=== PATIENT | male | born 1940 | race Caucasian/White ===

== ENCOUNTER → 2016-10-27 | Outpatient (CLI) | payer BC ==
[~2016-10-27] MED LIST: ACAR25TA PO; ANT25 PO; ASPI-435 PO; ATOR-26 PO; CALC600T9 PO; CIPR-255 PO; CLN200 PO; CLR10 PO; DIAZ-165 PO; DOCU100C31 PO; DOXA4TAB2 PO; DULA1INJ INJ; DUTA0.5C PO; FINA5TAB PO; FLUT0.15 NAE; GLC850 PO; GLIM4TAB PO; LISI-461 PO; MECL1TAB42 PO; MELO15TA3 PO; METO-217 PO; MGNO400 PO; MULT-506 PO; RPF/8 PO; SITA1TAB27 PO; SLWMEC PO; SOLI10TA2 PO; TRAZ100T29 PO; VENL75CA PO
[2016-10-27 16:48] LABS: HEMATOCRIT 38.5 % (42-52); MEAN CELL VOLUME 88.9 fL (80-100); MEAN CORPUSCULAR HEMOGLOBIN 29.6 pg (25-34); MEAN CORPUSCULAR HGB CONC 33.2 g/dl (32-36); MEAN PLATELET VOLUME 11.6 fL (7.4-10.4); PLATELET COUNT 206 K/uL (130-400); RED BLOOD COUNT 4.33 M/uL (4.7-6.1); WHITE BLOOD COUNT 5.79 K/uL (4.8-10.8)
[2016-10-27 16:56] LABS: ALT/SGPT 24 U/L (12-78); BLOOD UREA NITROGEN 19 mg/dl (7-18); BUN/CREATININE RATIO 16.2 (10-20); CALCIUM 9.3 mg/dl (8.5-10.1); CARBON DIOXIDE 28 mmol/L (21-32); CHLORIDE 107 mmol/L (98-107); CHOLESTEROL 142 mg/dl (0-200); GLUCOSE 202 mg/dl (70-99); POTASSIUM 4.6 mmol/L (3.5-5.1); SODIUM 143 mmol/L (136-145)
[2016-10-27 17:07] LABS: ALB/GLOB RATIO 0.9 (0.9-2); ALKALINE PHOSPHATASE 109 U/L (45-117); AST/SGOT 15 U/L (15-37); CHOLESTEROL/HDL RATIO 3.6; HDL CHOLESTEROL 40 mg/dl; LDL CHOLESTEROL CALCULATED 80 mg/dl; TRIGLYCERIDES 112 mg/dl (0-150); VERY LOW DENSITY LIPOPROT CALC 22 mg/dl
[2016-10-28 05:56] LABS: ESTIMATED AVERAGE GLUCOSE 206 mg/dl; HA1C FLAG Normal (Normal)
== END | disposition home or self-care (01) ==
LOC: C.LABBFT 12:37
PROVIDERS: ATTEND Internal Medicine
DX: E11.29 Type 2 diabetes mellitus with other diabetic kidney complication (principal)

== ENCOUNTER → 2017-01-26 | Outpatient (CLI) | payer BC ==
--- NOTE | 2017-01-26 14:47 | DIAGNOSTIC IMAGING REPORT ---
CT HEAD WITHOUT CONTRAST (CT) CLINICAL HISTORY: G31.84 Mild cognitive [id number] Gait [id number] COMPARISON STUDY: No previous studies for comparison. TECHNIQUE: Axial CT of the brain is performed from the vertex to the skull base. IV contrast was not administered for this examination. CT DOSE: 614.27 mGy.cm FINDINGS: No intra or extra-axial mass lesions are visualized. There is no CT evidence of acute cortical infarction. There is no evidence of midline shift. There is no acute hemorrhage. No calvarial fractures are visualized. There are patchy white matter hypodensities likely on a small vessel basis. There is a cortical calcification within the left parietal vertex. This is not felt to be of acute clinical significance. There is an old lacunar infarct within the right pelvis. There is no evidence of pathologic ventricular dilatation. There is no evidence of acute sinusitis IMPRESSION: 1. No acute intracranial findings 2. Old right thalamic infarct 3. White matter hypodensities likely on a small vessel basis Electronically signed by: Daniel Cuadra M.D. 01/26/2017 2:46 PM Dictated Date/Time: 01/26/2017 2:45 PM
--- NOTE | 2017-02-01 13:20 | CODING QUERY MEDICAL NECESSITY ---
SUPPORTING DIAGNOSIS NEEDED Dr. Gregory, A supporting diagnosis is required for the test/procedure performed on this patient in order for us to be reimbursed by the patient's insurance. Please provide a supporting diagnosis for the following test/procedure listed below next to the test name along with your signature. *If there is no additional diagnosis for this patient that would support the following test/procedure please document that below next to the test/procedure. Test(s)/Procedure(s) that require a supporting diagnosis: * ([id number]) B12 VITAMIN LEVEL DIAGNOSIS: DATE OF SERVICE: 01/26/17 Provider Signature: Date: Thank you Abisai Scales Health Information Management Once completed, please kindly fax back to [phone] For questions please call [phone]
== END | disposition home or self-care (01) ==
LOC: C.CTS 13:57
PROVIDERS: ATTEND Psychiatry & Neurology Neurology
DX: R48.2 Apraxia (principal); G31.84 Mild cognitive impairment of uncertain or unknown etiology; R26.9 Unspecified abnormalities of gait and mobility

== ENCOUNTER → 2017-02-22 | Outpatient (CLI) | payer BC | END | disposition home or self-care (01) | LOC: C.LABBFT 11:07 | PROVIDERS: ATTEND Internal Medicine Cardiovascular Disease | DX: R41.3 Other amnesia (principal) ==

== ENCOUNTER 2017-04-21 14:47 | Emergency (ER) | payer BC ==
[~2017-04-21] VITALS: Ht 172.7 cm; Wt 106.5 kg
[~2017-04-21 14:47] MED LIST changes: -CLN200 PO; -DOCU100C31 PO; -DULA1INJ INJ; -FINA5TAB PO; -FLUT0.15 NAE; -MECL1TAB42 PO; -SLWMEC PO; -SOLI10TA2 PO
[2017-04-21 14:52] VITALS: TEMP 36.7; Ht 172.7 cm; Wt 106.5 kg
[2017-04-21] MEDS ORDERED: DOCU100C31 PO (15:37)
[2017-04-21] MEDS ORDERED: FLUT0.15 NAE (15:37)
[2017-04-21] MEDS ORDERED: SLWMEC PO (15:37)
[2017-04-21] MEDS ORDERED: DULA1INJ INJ (15:37)
[2017-04-21] MEDS ORDERED: SOLI10TA2 PO (15:37)
[2017-04-21] MEDS ORDERED: FINA5TAB PO (15:37)
[2017-04-21] MEDS ORDERED: MECL1TAB42 PO (15:37)
[2017-04-21] MEDS ORDERED: CLN200 PO (15:37)
[2017-04-21] MEDS ORDERED: BUPIVACAINE 0.5 % 5 MG/1 ML MPF 30ML VIAL INFIL ONE (15:45)
[2017-04-21] MEDS ORDERED: XYLOCAINE 1%/SOD BICARB 20 ML VIAL INFIL ONE (15:45)
--- NOTE | 2017-04-21 16:02 | DIAGNOSTIC IMAGING REPORT ---
LEFT HAND 3 VIEWS CLINICAL HISTORY: Left hand injury. Pain and swelling. FINDINGS: 3 views of the left hand are obtained. No prior studies are available for comparison at the time of dictation. The skeletal structures are osteopenic. No fracture is seen. There is advanced arthritic change identified along the radial carpal row and at the first carpometacarpal joint. Osseous arthritic changes also seen involving the first metacarpophalangeal joint and the interphalangeal joints. No erosive change is seen. There is marked dorsal soft tissue edema. There is atherosclerotic calcification of the regional arteries. IMPRESSION: 1. Marked soft tissue edema with no radiographic evidence of left hand fracture. Consider short-term radiographic follow-up if there is strong clinical concern for occult fracture. 2. Osteopenia and arthritic change as above. 3. There is advanced atherosclerotic calcification of the regional arteries. Electronically signed by: Lei Rich M.D. 04/21/2017 4:01 PM Dictated Date/Time: 04/21/2017 3:58 PM
--- NOTE | 2017-04-21 16:25 | DIAGNOSTIC IMAGING REPORT ---
LEFT WRIST W/NAVICULAR MIN 3 VIEWS CLINICAL HISTORY: left wrist/hand swelling and pain s/p hit by falling emergency nurse trauma. Pain. COMPARISON: None. DISCUSSION: Generalized degenerative change. Generalized soft tissue edema. No acute bony abnormality. Degenerative changes throughout IMPRESSION: Generalized degenerative change. Soft tissue edema. No acute abnormality Electronically signed by: Gordon Gonzalez M.D. 04/21/2017 4:24 PM Dictated Date/Time: 04/21/2017 4:21 PM
--- NOTE | 2017-04-21 17:26 | EMERGENCY ROOM VISIT NOTE ---
ED Visit Note First contact with patient: 15:01 CHIEF COMPLAINT: Hand laceration HISTORY OF PRESENT ILLNESS: This 76-year-old male patient presents to the emergency department approximately 30 minutes after cutting the left hand and fingers. The patient also reports various skin tears on bilateral arms and hands. Patient states he was working on a lawnmower, which was raised on a forklift, when the strap broke which was holding the mower approximately 6 feet in the air. Patient states the mower fell, and on its way down, it hit both of his arms and hands. Patient reports a significant amount of swelling over the left hand and wrist. He reports minimal pain. He rates this pain as throbbing and 3/10. The bleeding has stopped. Denies weakness or numbness of the hand or fingers. The patient denies any other injuries. The patient's Tetanus shot is up to date. REVIEW OF SYSTEMS: A 6 system review of systems was completed with positives and pertinent negatives listed in the HPI. ALLERGIES: None MEDICATIONS: See list PMH: Diabetes, hypertension, hyperlipidemia, vertigo, allergic rhinitis, depression, anxiety SOCIAL HISTORY: Patient lives locally with his family. He denies tobacco, alcohol, drug use. PHYSICAL EXAM: Vital Signs: Reviewed Nurse's notes, vital signs stable. GENERAL : 76-year-old male, in no acute distress, well-developed, well-nourished. SKIN : There is a 6 cm long laceration on the dorsal aspect of the left hand and into the medial aspect of the 4th digit. There is a separate 6 cm long laceration on the dorsal/medial aspect of the left hand and 4th digit. The edges gape apart with traction. There is no foreign material in the wound and it looks clean. There is minimal active bleeding. Tendon noted in laceration into 4th digit, but normal strength and movement of the hand. No deep structures such as tendons, bones, or significant blood vessels are seen in the base of the wound, except as previously noted. Normal strength and movement of the fingers and wrist. Capillary refill less than 2 seconds. Normal sensation to light and sharp touch. EMERGENCY DEPARTMENT COURSE: I examined the patient. xray of left wrist and hand ordered and reviewed by myself and radiologist: Left Hand: FINDINGS: 3 views of the left hand are obtained. No prior studies are available for comparison at the time of dictation. The skeletal structures are osteopenic. No fracture is seen. There is advanced arthritic change identified along the radial carpal row and at the first carpometacarpal joint. Osseous arthritic changes also seen involving the first metacarpophalangeal joint and the interphalangeal joints. No erosive change is seen. There is marked dorsal soft tissue edema. There is atherosclerotic calcification of the regional arteries. IMPRESSION: 1. Marked soft tissue edema with no radiographic evidence of left hand fracture. Consider short-term radiographic follow-up if there is strong clinical concern for occult fracture. 2. Osteopenia and arthritic change as above. 3. There is advanced atherosclerotic calcification of the regional arteries. Left Wrist: DISCUSSION: Generalized degenerative change. Generalized soft tissue edema. No acute bony abnormality. Degenerative changes throughout IMPRESSION: Generalized degenerative change. Soft tissue edema. No acute abnormality Verbal consent was obtained to perform the procedure. Using sterile technique the wound was cleansed with Betadine. The area was sterilely draped. 5 mL of 1 % buffered lidocaine with 0.5% bupivacaine was used to perform a digital block of the left fifth digit, performed by . 10 ml of 1% buffered lidocaine was used to locally anesthetize the laceration on the hand by our PA student. The PA student performed the rest of the procedure. Once the patient was anesthetized, the wound was copiously irrigated under pressure with sterile saline. The wound was explored and was as described above. The laceration on the hand and fourth digit was repaired using 14 simple interrupted 5-0 nylon sutures with the wound edges being well approximated. The laceration on the fifth digit was repaired using 18 simple interrupted 5-0 nylon sutures. The patient tolerated the procedure well. Hemostasis was achieved. The area was cleaned with sterile saline and dressed with bacitracin ointment and bandage. Various other skin tears on bilateral arms and hands were cleaned with sterile saline and dressed with Steri-Strips and gauze. The patient was discharged home in good condition. DIAGNOSIS: Finger and Hand laceration, skin tears DIFFERENTIAL DIAGNOSIS: Distal radius/ulna fracture, metacarpal fracture, carpal bone fracture, tendon rupture, and others. DISCHARGE INSTRUCTIONS & TREATMENT: You have received 32 sutures on your left hand and fingers. These sutures are NOT dissolvable and WILL need to be removed by a health care provider in 10-12 days. You can return to the Emergency Department or contact your Primary Care Provider to have the sutures removed. Proper wound care is essential for adequate wound healing and infection prevention. You can shower and clean the wound with soap and water. Do not scour over the wound, pat dry with a towel. Do not submerse the wound (i.e. bathe or dish wash) until the sutures have been removed. You can use an antibiotic ointment with a dressing over the wound for the next 3-4 days. After this time you may leave the wound dry and open to the air. If crust develops over the wound you can use a Q-tip to apply a 1:1 peroxide:water solution to clean the wound. Look for signs of infection of the wound including: increased pain, swelling, foul discharge, streaking, or increased temperature. If any of these are noticed you should return to the Emergency Department for further assessment and treatment. You should use ice on the hand and wrist for swelling and pain. As with any laceration you may have received nerve damage to the surrounding tissues. This damage may or may not be permanent. You should keep the area covered with sunscreen for the first 6 months to 1 year when at risk for exposure to help minimize scarring. You can also use scar reducing creams or Vitamin E oil to help minimize scarring. Keep the Steri-Strips in place. They will follow off on their own. Try to avoid getting them wet. You may change the outer bandage if you experience a significant amount of bruising, bleeding or drainage. For pain control, you can use the following [id number]-[id number] medicines (if >12 yo): - Regular strength (325mg/tab) Tylenol (acetaminophen) 2 tabs every 4-6 hours as needed. Do not exceed 12 tablets in a 24 hour period. Avoid taking more than 4 grams (4000 mg) of Tylenol per day. This includes any other sources of acetaminophen you may take on a regular basis. - Regular strength (200 mg/tab) Advil (ibuprofen) 1-2 tabs every 4-6 hours as needed. Do not exceed a dose of 3200 mg per day. Return to the emergency department if your symptoms worsen despite treatment course outlined above. Problem List Medical Problems: (1) Prostate enlargement Status: Chronic Current/Historical Medications Scheduled Acarbose (Precose), 50 MG PO TID Aspirin (Aspirin 81), 81 MG PO NOON Atorvastatin (Lipitor), 80 MG PO HS Calcium Carbonate-Vitamin D (Calcium + D), 1 TAB PO BID Docusate Sodium (Docusate Sodium), 2 CAP PO HS Dulaglutide (Trulicity), 0.5 ML INJ WK Finasteride (Proscar), 5 MG PO HS Fluticasone Propionate (Nasal) (Flonase Allergy Relief), 2 SPRAYS MARY KAY DAILY Glimepiride (Amaryl), 4 MG PO BID Lisinopril (Zestril), 10 MG PO DAILY Loratadine (Claritin), 10 MG PO DAILY Magnesium Chloride (Slow-Mag Tab), 2 TAB PO TID Meclizine Hcl (Meclizine Hcl), 1 TAB PO NOON Metformin HCl (Metformin HCl), 850 MG PO TIDM Metoprolol Succinate (Toprol Xl), 50 MG PO QAM Multivitamin (Multivitamin), 1 TAB PO DAILY Sitagliptin (Januvia), 100 MG PO DAILY AT 1200 Solifenacin (Vesicare), 10 MG PO HS Sulindac (Sulindac), 1 TAB PO BID Trazodone Hcl (Trazodone), 200 MG PO HS Venlafaxine Hcl (Effexor Xr), 225 MG PO QAM Scheduled PRN Diazepam (Valium), 5-10 MG PO TID PRN for TREMORS Allergies Coded Allergies: No Known Allergies (Verified , 04/21/17) Vital Signs Date Time Temp Pulse Resp B/P (MAP) Pulse Ox O2 Delivery O2 Flow Rate FiO2 04/21/17 17:24 61 16 105/62 94 04/21/17 14:52 36.7 75 16 132/75 95 Room Air Departure Information Impression Primary Impression: Laceration of multiple sites of upper extremity Additional Impressions: Skin tear of right forearm without complication Skin tear of right hand without complication Skin tear of left forearm without complication Dispostion Home / Self-Care Condition GOOD Referrals Bradley Hill M.D. (PCP) Patient Instructions My [facility] Additional Instructions You have received 32 sutures on your left hand and fingers. These sutures are NOT dissolvable and WILL need to be removed by a health care provider in 10-12 days. You can return to the Emergency Department or contact your Primary Care Provider to have the sutures removed. Proper wound care is essential for adequate wound healing and infection prevention. You can shower and clean the wound with soap and water. Do not scour over the wound, pat dry with a towel. Do not submerse the wound (i.e. bathe or dish wash) until the sutures have been removed. You can use an antibiotic ointment with a dressing over the wound for the next 3-4 days. After this time you may leave the wound dry and open to the air. If crust develops over the wound you can use a Q-tip to apply a 1:1 peroxide:water solution to clean the wound. Look for signs of infection of the wound including: increased pain, swelling, foul discharge, streaking, or increased temperature. If any of these are noticed you should return to the Emergency Department for further assessment and treatment. You should use ice on the hand and wrist for swelling and pain. As with any laceration you may have received nerve damage to the surrounding tissues. This damage may or may not be permanent. You should keep the area covered with sunscreen for the first 6 months to 1 year when at risk for exposure to help minimize scarring. You can also use scar reducing creams or Vitamin E oil to help minimize scarring. Keep the Steri-Strips in place. They will follow off on their own. Try to avoid getting them wet. You may change the outer bandage if you experience a significant amount of bruising, bleeding or drainage. For pain control, you can use the following quac-rzz-quvejqg medicines (if >12 yo): - Regular strength (325mg/tab) Tylenol (acetaminophen) 2 tabs every 4-6 hours as needed. Do not exceed 12 tablets in a 24 hour period. Avoid taking more than 4 grams (4000 mg) of Tylenol per day. This includes any other sources of acetaminophen you may take on a regular basis. - Regular strength (200 mg/tab) Advil (ibuprofen) 1-2 tabs every 4-6 hours as needed. Do not exceed a dose of 3200 mg per day. Return to the emergency department if your symptoms worsen despite treatment course outlined above. Problem Qualifiers Primary Impression: Laceration of multiple sites of upper extremity Encounter type: initial encounter Laterality: unspecified laterality Qualified Codes: S41.119A - Laceration without foreign body of unspecified upper arm, initial encounter Additional Impressions: Skin tear of right forearm without complication Encounter type: initial encounter Qualified Codes: S51.811A - Laceration without foreign body of right forearm, initial encounter Skin tear of right hand without complication Encounter type: initial encounter Qualified Codes: S61.411A - Laceration without foreign body of right hand, initial encounter Skin tear of left forearm without complication Encounter type: initial encounter Qualified Codes: S51.812A - Laceration without foreign body of left forearm, initial encounter
--- NOTE | 2017-04-21 17:55 | EMERGENCY ROOM VISIT NOTE ---
ED Visit Note First contact with patient: 17:33 The patient was seen and examined with Lisa Luz PA-C. I agree with the history, physical and findings. Please see the note for disposition and details.
[2017-04-21 18:17] VITALS: BP 135/69; PULSE 62; O2SAT 94
== END 2017-04-21 18:34 | disposition home or self-care (01) ==
LOC: C.EDB 14:49 → C.EDD 18:34
DX: S41.119A Laceration without foreign body of unspecified upper arm, initial encounter (principal); S51.811A Laceration without foreign body of right forearm, initial encounter; S61.411A Laceration without foreign body of right hand, initial encounter; S51.812A Laceration without foreign body of left forearm, initial encounter; X58.XXXA Exposure to other specified factors, initial encounter; E11.9 Type 2 diabetes mellitus without complications; I10 Essential (primary) hypertension; E78.5 Hyperlipidemia, unspecified; F41.9 Anxiety disorder, unspecified; F33.9 Major depressive disorder, recurrent, unspecified; Z79.82 Long term (current) use of aspirin

== ENCOUNTER → 2017-04-26 | Outpatient (CLI) | payer BC ==
[~2017-04-26] MED LIST changes: -ANT25 PO; -CIPR-255 PO; +CLN200 PO; +DOCU100C31 PO; -DOXA4TAB2 PO; +DULA1INJ INJ; -DUTA0.5C PO; +FINA5TAB PO; +FLUT0.15 NAE; +MECL1TAB42 PO; -MELO15TA3 PO; -MGNO400 PO; -RPF/8 PO; +SLWMEC PO; +SOLI10TA2 PO
[2017-04-26 17:25] LABS: HEMATOCRIT 37.2 % (42-52); MEAN CELL VOLUME 90.7 fL (80-100); MEAN CORPUSCULAR HEMOGLOBIN 29.5 pg (25-34); MEAN CORPUSCULAR HGB CONC 32.5 g/dl (32-36); PLATELET COUNT 224 K/uL (130-400); WHITE BLOOD COUNT 8.68 K/uL (4.8-10.8)
[2017-04-26 17:45] LABS: ALT/SGPT 23 U/L (12-78); AST/SGOT 14 U/L (15-37); BLOOD UREA NITROGEN 26 mg/dl (7-18); BUN/CREATININE RATIO 21.9 (10-20); CALCIUM 9.3 mg/dl (8.5-10.1); CARBON DIOXIDE 24 mmol/L (21-32); CHLORIDE 110 mmol/L (98-107); GLUCOSE 181 mg/dl (70-99); SODIUM 140 mmol/L (136-145)
[2017-04-26 17:55] LABS: ALB/GLOB RATIO 0.9 (0.9-2); ALKALINE PHOSPHATASE 99 U/L (45-117); CHOLESTEROL 130 mg/dl (0-200); CHOLESTEROL/HDL RATIO 3.8; HDL CHOLESTEROL 34 mg/dl; LDL CHOLESTEROL CALCULATED 66 mg/dl; TRIGLYCERIDES 152 mg/dl (0-150); VERY LOW DENSITY LIPOPROT CALC 30 mg/dl
[2017-04-26 18:11] LABS: RATIO 58.3 mcg/mg (0-30.0)
[2017-04-27 06:30] LABS: ESTIMATED AVERAGE GLUCOSE 171 mg/dl; HA1C FLAG Normal (Normal)
== END | disposition home or self-care (01) ==
LOC: C.LABBFT 12:39
PROVIDERS: ATTEND Internal Medicine
DX: E11.65 Type 2 diabetes mellitus with hyperglycemia (principal); E11.29 Type 2 diabetes mellitus with other diabetic kidney complication

== ENCOUNTER → 2017-11-01 | Outpatient (CLI) | payer BC ==
[2017-11-01 18:09] LABS: HEMATOCRIT 39.5 % (42-52); HEMOGLOBIN 13.1 g/dL (14.0-18.0); MEAN CELL VOLUME 90.4 fL (80-100); MEAN CORPUSCULAR HGB CONC 33.2 g/dl (32-36); MEAN PLATELET VOLUME 12.1 fL (7.4-10.4); PLATELET COUNT 211 K/uL (130-400); RED CELL DISTRIBUTION WIDTH CV 13.7 % (11.5-14.5); RED CELL DISTRIBUTION WIDTH SD 45.1 fL (36.4-46.3); WHITE BLOOD COUNT 6.99 K/uL (4.8-10.8)
[2017-11-01 18:38] LABS: ALBUMIN 3.5 gm/dl (3.4-5.0); ALT/SGPT 31 U/L (12-78); AST/SGOT 18 U/L (15-37); BLOOD UREA NITROGEN 19 mg/dl (7-18); CALCIUM 9.4 mg/dl (8.5-10.1); CARBON DIOXIDE 27 mmol/L (21-32); CHOLESTEROL 124 mg/dl (0-200); CREATININE 1.24 mg/dl (0.60-1.40); GLUCOSE 166 mg/dl (70-99); POTASSIUM 4.7 mmol/L (3.5-5.1); SODIUM 141 mmol/L (136-145)
[2017-11-01 18:40] LABS: HEMOGLOBIN A1C 7.3 % (4.5-5.6)
[2017-11-01 18:45] LABS: ALKALINE PHOSPHATASE 97 U/L (45-117); LDL CHOLESTEROL CALCULATED 58 mg/dl; TOTAL PROTEIN 6.7 gm/dl (6.4-8.2)
== END | disposition home or self-care (01) ==
LOC: C.LABBFT 14:33
PROVIDERS: ATTEND Internal Medicine
DX: E11.29 Type 2 diabetes mellitus with other diabetic kidney complication (principal); E78.5 Hyperlipidemia, unspecified; I42.9 Cardiomyopathy, unspecified; I25.10 Atherosclerotic heart disease of native coronary artery without angina pectoris; I10 Essential (primary) hypertension; E83.42 Hypomagnesemia

== ENCOUNTER → 2017-11-11 | Outpatient (CLI) | payer BC ==
--- NOTE | 2017-11-11 16:50 | DIAGNOSTIC IMAGING REPORT ---
LEFT LOWER EXTREMITY VENOUS DOPPLER HISTORY: R60.0 Lower extremity edema COMPARISON STUDY: None. FINDINGS: There is normal compressibility, flow, and augmentation within the left lower extremity deep venous system. Mild heterogeneity within the subcutaneous fat at the left distal medial thigh. No loculated fluid collections. IMPRESSION: No DVT within the left lower extremity. Electronically signed by: Soren Friedman M.D. 11/11/2017 4:49 PM Dictated Date/Time: 11/11/2017 4:49 PM
== END | disposition home or self-care (01) ==
LOC: C.ULTR 15:36
PROVIDERS: ATTEND Internal Medicine
DX: R60.0 Localized edema (principal)

== ENCOUNTER → 2017-12-17 | Outpatient (CLI) | payer BC ==
[~2017-12-17] MED LIST changes: +DTRSR/2 PO; -GLC850 PO; +METF850T10 PO
== END | disposition home or self-care (01) ==
LOC: C.LABBFT 10:46
PROVIDERS: ATTEND Internal Medicine Cardiovascular Disease
DX: E83.42 Hypomagnesemia (principal)

== ENCOUNTER → 2018-02-23 | Outpatient (CLI) | payer BC ==
[~2018-02-23] MED LIST changes: -SOLI10TA2 PO
== END | disposition home or self-care (01) ==
LOC: C.LABBFT 13:28
PROVIDERS: ATTEND Urology
DX: N39.41 Urge incontinence (principal)

== ENCOUNTER → 2018-05-18 | Outpatient (CLI) | payer BC ==
[~2018-05-18] MED LIST changes: -VENL75CA PO; +VENL75CA94 PO
[2018-05-18 14:14] LABS: BLOOD UREA NITROGEN 23 mg/dl (7-18); CALCIUM 9.2 mg/dl (8.5-10.1); CARBON DIOXIDE 25 mmol/L (21-32); CREATININE 1.35 mg/dl (0.60-1.40); GLUCOSE 201 mg/dl (70-99); POTASSIUM 4.5 mmol/L (3.5-5.1); SODIUM 142 mmol/L (136-145)
== END | disposition home or self-care (01) ==
LOC: C.LAB 11:52
PROVIDERS: ATTEND Internal Medicine
DX: Z00.00 Encounter for general adult medical examination without abnormal findings (principal)

== ENCOUNTER 2019-07-03 21:51 | Observation (INO) ==
[2019-07-03] MEDS ORDERED: SODIUM CHLORIDE 0.9% 1000ML 500 ML IV ONE (22:09)
[2019-07-03 22:35] LABS: Basophils # (auto) 0.03 K/uL (0-0.2); Basophils % (auto) 0.3 %; Eosinophils # (auto) 0.68 K/uL (0-0.5); Eosinophils % (auto) 7.8 %; Hematocrit (blood only) 39.3 % (42-52); Hemoglobin 13.4 g/dL (14.0-18.0); Immature Granulocytes # (auto) 0.04 K/uL (0.00-0.02); Immature Granulocytes % (auto) 0.5 %; Lymphocytes # (auto) 2.13 K/uL (1.2-3.4); Lymphocytes % (auto) 24.5 %; Mean Corpuscular Hgb Conc 34.1 g/dL (32-36); Mean Corpuscular Volume 91.4 fL (80-100); Mean Platelet Volume 11.4 fL (7.4-10.4); Monocytes # (auto) 0.56 K/uL (0.11-0.59); Monocytes % (auto) 6.5 %; Neutrophils # (auto) 5.24 K/uL (1.4-6.5); Neutrophils % (auto) 60.4 %; Platelet Count 185 K/uL (130-400); RDW Coefficient of Variation 13.9 % (11.5-14.5); RDW Standard Deviation 46.2 fL (36.4-46.3); White Blood Count 8.68 K/uL (4.8-10.8)
[2019-07-03 22:50] LABS: Albumin Level 3.7 gm/dl (3.4-5.0); BUN Creatinine Ratio 18.6 (10-20); Calcium 9.4 mg/dl (8.5-10.1); Creatinine Clr Calc Pharmacy 43.9 ml/min; Est GFR (African American) 52.7; Est GFR (Non-African American) 45.5; Potassium 4.7 mmol/L (3.5-5.1)
[2019-07-03 22:53] LABS: Albumin Globulin Ratio 1.1 (0.9-2); Bilirubin,Total 0.4 mg/dl (0.2-1); Globulin 3.2 gm/dl (2.5-4.0); Total Protein 6.9 gm/dl (6.4-8.2)
--- NOTE | 2019-07-03 23:00 | CT Scan Report ---
CT abd pelvis wo con CLINICAL HISTORY: 78 years-old Male presenting with known hernia, new onset pain, concern for incarce ration. TECHNIQUE: Multidetector CT of the abdomen and pelvis was performed without the use of intravenous co ntrast. IV contrast: None. One or more dose lowering techniques were used consistent with the princip les of ALARA (as low as reasonably achievable), including automatic exposure control, mA or kV adjust ment to individual patient size, and/or use of iterative reconstruction. COMPARISON: 01/16/2019. CT DOSE (mGy.cm): The estimated cumulative dose is 2304.35 mGy.cm. FINDINGS: Core Setter topogram: Median sternotomy wires and lumbar spinal fusion hardware. Lung bases: Top normal heart size. Coronary artery and aortic valve calcification. No pericardial or pleural effusion. No focal infiltrate or nodule at the lung bases. Liver: Congenital hypoplasia of the medial segments of the left hepatic lobe. Density consistent with mild hepatic steatosis. Punctate calcification suggest a history of granulomatous disease. Biliary: No gross biliary ductal dilatation allowing for noncontrast technique. Normal gallbladder. Pancreas: Moderate parenchymal atrophy. Spleen: Punctate calcification suggest a history of granulomatous disease. Adrenal glands: Normal noncontrast appearance. Kidneys and ureters: Prominent renal vascular calcification. Nonspecific moderate bilateral perinephr ic fat stranding. Mild cortical atrophy may be present bilaterally. Few underlying cysts may be prese nt in the left kidney, one of which is hyperdense suggesting hemorrhagic or proteinaceous debris. No hydronephrosis. Ureters nondistended. Bladder: Circumferential bladder wall thickening. Pelvic organs: Prostate enlargement likely secondary to benign prostatic hyperplasia. Bowel: Mild stool burden throughout normal caliber colon. Mild distention of small bowel without conv incing evidence of high-grade partial or complete bowel obstruction. A loop of unobstructed small bow el is contained within the periumbilical hernia. There is trace pericholecystic fluid and infiltrativ e change in the immediately upstream or downstream loops of small bowel. The appendix is not visualiz ed. Scattered hyperdense material within the small bowel may certainly relate to medication administr ation. Trace hiatal hernia. Peritoneal cavity: No free fluid or intraperitoneal gas. Lymph nodes: No gross lymphadenopathy allowing for noncontrast technique. Vasculature: Atherosclerosis of the normal caliber abdominal aorta. Abdominal wall: Prominent umbilical hernia containing an unobstructed loop of small bowel. Associated trace fluid. The mesenteric fat within the hernia sac is not infiltrated. Bilateral fat-containing i nguinal hernias. Gynecomastia. Musculoskeletal: Degenerative changes of the spine. Lumbar fusion hardware. IMPRESSION: 1. Umbilical hernia containing an unobstructed loop of small bowel and trace fluid. No infiltrative changes within the hernia sac to raise concern for strangulation. Correlate clinically for reducibili ty. There may be a low-grade partial bowel obstruction. No convincing evidence of a high-grade partia l or complete bowel obstruction. 2. Prostatomegaly with chronic bladder outlet obstruction. 3. Additional findings as above. Electronically signed by: Jethro Villanueva M.D. 07/03/2019 10:58 PM
--- NOTE | 2019-07-04 00:18 | Emergency Department Note ---
Entered by Chey Orozco acting as a scribe for Woody Blake MD History of Present Illness General Chief complaint: Abdominal Pain Stated complaint: HERNIA ON ABD, TURNED HARD, PAIN IN STOMACH Time Seen by Provider: 07/03/19 22:00 Source: patient History of Present Illness Onset (ago): hour(s) 10 Location: abdomen Severity: similar to prior episodes Pain Consistency: + other (Sudden) Maximum Pain Intensity: 8 Quality: + other (Abdominal pain) Relieved By: not by rest Associated symptoms: no nausea/vomiting and no other (Abnormal urinary symptoms) Treatments prior to arrival: other (rest) The patient is a 78 year old male presenting to the Emergency Department complaining of sudden abdominal pain starting 10 hours ago. The patient reports that his abdomen feels hard and is painful. He states that he had a bowel movement earlier today. He notes that he has had an abdominal hernia for over 30 years and has felt these symptoms before. 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 The patient denies nausea, vomiting and abnormal urinary symptoms. Home Medications Home Medications Medication Instructions Recorded Confirmed Type atorvastatin [Lipitor] 80 mg PO HS 10/10/18 07/03/19 History diazepam [Valium] 5 mg PO BID PRN 10/10/18 07/03/19 History docusate sodium 200 mg PO HS 10/10/18 07/03/19 History fluticasone propionate [Flonase 2 spray INTRANASAL QAM 10/10/18 07/03/19 History Allergy Relief] lisinopril [Zestril] 10 mg PO QAM 10/10/18 07/03/19 History metoprolol succinate [Toprol XL] 50 mg PO QAM 10/10/18 07/03/19 History multivitamin 1 cap PO QDL 10/10/18 07/03/19 History sulindac 200 mg PO BID 10/10/18 07/03/19 History tolterodine [Detrol] 2 mg PO BID 10/10/18 07/03/19 History trazodone 200 mg PO HS 10/10/18 07/03/19 History hydrocodone-acetaminophen [Vicodin] 1 tab PO Q6H PRN #20 tab 03/14/19 07/03/19 Rx meclizine 25 mg tablet 25 mg PO QAM #90 tab 04/03/19 07/03/19 Rx glimepiride 4 mg tablet 4 mg PO BID #180 tab 05/02/19 07/03/19 Rx magnesium 64 mg (magnesium 128 mg PO TID #540 tab 05/08/19 07/03/19 Rx chloride) tablet,delayed release venlafaxine ER 75 mg 225 mg PO QAM #270 cap 05/08/19 07/03/19 Rx capsule,extended release 24 hr acarbose 50 mg tablet 50 mg PO TID #270 tab 05/16/19 07/03/19 Rx calcium carbonate 600 mg (1,500 1 tab PO BID tab 05/25/19 07/03/19 History mg)-vitamin D3 200 unit tablet dulaglutide 0.75 mg/0.5 mL 1.5 mg SUBCUT WK ml 05/25/19 07/03/19 History subcutaneous pen injector finasteride 5 mg tablet 5 mg PO HS #90 tab 06/21/19 07/03/19 Rx loratadine 10 mg tablet 10 mg PO DAILY #90 tab 06/29/19 07/03/19 Rx sitagliptin 100 mg tablet 100 mg PO DAILY #90 tab 06/29/19 07/03/19 Rx aspirin 81 mg PO DAILY 07/03/19 07/03/19 History Allergies Allergy/AdvReac Type Severity Reaction Status Date / Time No Known Allergies Allergy Verified 07/03/19 23:17 Past Med/Surg History Medical History Anxiety BPH (benign prostatic hyperplasia) CAD (coronary artery disease) CABG X3 (2013) CKD (chronic kidney disease) BASELINE CREATININE 1.5-1.7 RANGE PER CHART REVIEW Chronic back pain Depression Diabetes mellitus, type 2 NIDDM Hearing deficit Hyperlipidemia Hypertension Ischemic cardiomyopathy Kidney stones Myocardial Infarction ? 2014 Osteoarthritis Right inguinal hernia Tremor of both hands Surgical History History of appendectomy History of cardiac cath 2014 History of colonoscopy History of coronary artery bypass graft CABG X3 (2013) History of laminectomy LUMBAR BACK SURGERY X 2 History of lithotripsy History of open reduction and internal fixation (ORIF) procedure RIGHT LLE/ANKLE 2/2 FALL History of tooth extraction ALL TEETH EXTRACTED History of umbilical hernia repair Hx of transurethral resection of prostate Family History Sister Pancreatic cancer Other No family history of adverse response to anesthesia Social History Preferred Language: Portuguese Communication Ability: Effective 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 and A total of 10 systems reviewed and were otherwise negative Physical Exam Vital Signs Vital Signs - 24 hr 07/03/19 21:53 07/03/19 22:20 07/03/19 22:43 Temperature 36.5 C Temperature Source Oral Sepsis Recent Fever Within 48 Hours No Sepsis Action Taken by Nursing No Action Required Pulse Rate 68 Pulse Rate [Apical] 61 Pulse Rhythm Regular Pulse Rhythm [Apical] Pulse Strength Normal Pulse Strength [Apical] Respiratory Rate 18 16 Respiratory Effort / Characteristics Non-Labored Spontaneous Respiratory Depth Normal Normal Respiratory Pattern Regular Blood Pressure 157/73 H Blood Pressure [Left Arm] 159/67 H Blood Pressure Mean 101 Blood Pressure Mean [Left Arm] 97 Blood Pressure Position Sitting Pulse Oximetry 95 99 Oxygen Delivery Method Room Air Room Air Room Air 07/04/19 00:22 Temperature Temperature Source Sepsis Recent Fever Within 48 Hours Sepsis Action Taken by Nursing Pulse Rate Pulse Rate [Apical] 62 Pulse Rhythm Pulse Rhythm [Apical] Regular Pulse Strength Pulse Strength [Apical] Normal Respiratory Rate 18 Respiratory Effort / Characteristics Non-Labored Spontaneous Respiratory Depth Normal Respiratory Pattern Regular Blood Pressure Blood Pressure [Left Arm] 152/69 H Blood Pressure Mean Blood Pressure Mean [Left Arm] 96 Blood Pressure Position Pulse Oximetry 97 Oxygen Delivery Method Room Air General: Non-ill appearing older male in no acute distress. HEENT: Normal cephalic atraumatic. Pupils are equal round and reactive to light. Extraocular movements are intact. Oropharynx is pink with moist mucous membranes. No swelling of the mouth lips or tongue. Neck: Supple with a midline trachea. No meningeal signs or stiffness, no JVD or bruits. No Stridor. Chest: Clear to auscultation bilaterally. No wheezes or rhonchi. No increased work of breathing. Heart: regular rate and rhythm. Abdomen: Nondistended without rebound guarding or rigidity. Hernia at umbilicus that is firm and mildly tender. No redness or warmth. Hernia is not reducible. Extremities: No cyanosis clubbing or edema. No calf tenderness or asymmetry Spine/Back. Non tender to palpation. No CVA tenderness Skin: Good turgor without rashes. Neurologic exam: Cranial nerves two through 12 are intact. Motor and sensation are intact and symmetrical throughout. Course 2201: The patient was evaluated in room A10, and a complete history and physical examination were performed. 2328: I reevaluated the patient at this time. I pushed on hernia which seems like it gets smaller but doesnt go back in. 2330: I discussed the patients case with Dr. Oneal General surgeon who recommends that the patient be admitted to medicine. 2335: I discussed the patients case with Dr. Tania BECKER hospitalist. He will evaluate the patient for further management. Consultations Consultation #1: I discussed the patients case with Dr. Oneal General surgeon who recommends that the patient be admitted to medicine. Time: 23:30 Consultation #2: I discussed the patients case with Dr. Tania BECKER hospitalist. He will evaluate the patient for further management. Time: 23:35 Administered Medications Discontinued Medications Sodium Chloride (Nss 1000ml) 500 mls @ 999 mls/hr IV .Q31M ONE Stop: 07/03/19 22:39 Last Infusion: 07/03/19 22:54 Dose: 0 mls/hr Documented by: [id number] Admin: 07/03/19 22:18 Dose: 999 mls/hr Documented by: [id number] Medical Decision Making Differential Diagnosis Differentials include hernia, bowel obstruction, bowel infection and electrolyte or metabolic abnormality amongst others. Medical Records Attestation: I reviewed the patient's medical records. Home Medications Current Medication List: was personally reviewed by me Laboratory Data Attestation: I reviewed the patient's lab results. Result diagrams: 07/03/19 22:19 07/03/19 22: Lab Results 07/03/19 07/03/19 07/03/19 Range/Units 22:19 22:19 23:54 WBC 8.68 (4.8-10.8) K/uL RBC 4.30 L (4.7-6.1) M/uL Hgb 13.4 L (14.0-18.0) g/dL Hct 39.3 L (42-52) % MCV 91.4 (80-100) fL MCH 31.2 (25-34) pg MCHC 34.1 (32-36) g/dL RDW Std Deviation 46.2 (36.4-46.3) fL RDW Coeff of [place] 13.9 (11.5-14.5) % Plt Count 185 (130-400) K/uL MPV 11.4 H (7.4-10.4) fL Immature Gran % (Auto) 0.5 % Neut % (Auto) 60.4 % Lymph % (Auto) 24.5 % [place] % (Auto) 6.5 % Eos % (Auto) 7.8 % Baso % (Auto) 0.3 % Immature Gran # (Auto) 0.04 H (0.00-0.02) K/uL Neut # (Auto) 5.24 (1.4-6.5) K/uL Lymph # (Auto) 2.13 (1.2-3.4) K/uL [place] # (Auto) 0.56 (0.11-0.59) K/uL Eos # (Auto) 0.68 H (0-0.5) K/uL Baso # (Auto) 0.03 (0-0.2) K/uL Sodium 143 (136-145) mmol/L Potassium 4.7 (3.5-5.1) mmol/L Chloride 110 H (98-107) mmol/L Carbon Dioxide 29 (21-32) mmol/L Anion Gap 4.0 (3-11) BUN 27 H (7-18) mg/dl Creatinine 1.45 H (0.6-1.4) mg/dl Est Cr Clr Drug Dosing 43.9 ml/min Est GFR ( Amer) 52.7 Est GFR (Non-Af Amer) 45.5 BUN/Creatinine Ratio 18.6 (10-20) Glucose 99 (70-99) mg/dl Calcium 9.4 (8.5-10.1) mg/dl Total Bilirubin 0.4 (0.2-1) mg/dl AST 17 (15-37) U/L ALT 26 (12-78) U/L Alkaline Phosphatase 96 (45-117) U/L Total Protein 6.9 (6.4-8.2) gm/dl Albumin 3.7 (3.4-5.0) gm/dl Globulin 3.2 (2.5-4.0) gm/dl Albumin/Globulin Ratio 1.1 (0.9-2) Lipase 197 (73-393) U/L Urine Color Yellow Urine Appearance Clear (Clear) Urine pH 5.0 (4.5-7.5) Ur Specific [place] 1.019 (1.000-1.030) Urine Protein Trace H (Negative) Urine Glucose (UA) Negative (Negative) Urine Ketones Negative (Negative) Urine Blood 1+ H (Negative) Urine Nitrite Negative (Negative) Urine Bilirubin Negative (Negative) Urine Urobilinogen Negative (Negative) Ur Leukocyte Esterase 1+ H (Negative) Urine WBC (Auto) 10-30 H (0-5) /hpf Urine RBC (Auto) 5-10 H (0-4) /hpf U Hyaline Cast (Auto) 1-5 (0-5) /lpf U Epithel Cells (Auto) 5-10 H (0-5) /lpf Urine Bacteria (Auto) Negative (Negative) Imaging Data Radiologist's Impression: Radiology results as stated below per my review and the radiologist's interpretation: CT abd pelvis wo con CLINICAL HISTORY: 78 years-old Male presenting with known hernia, new onset pain, concern for incarceration. TECHNIQUE: Multidetector CT of the abdomen and pelvis was performed without the use of intravenous contrast. IV contrast: None. One or more dose lowering techniques were used consistent with the principles of ALARA (as low as reasonably achievable), including automatic exposure control, mA or kV adjustment to individual patient size, and/or use of iterative reconstruction. COMPARISON: 01/16/2019. CT DOSE (mGy.cm): The estimated cumulative dose is 2304.35 mGy.cm. 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 Lung bases: Top normal heart size. Coronary artery and aortic valve calcification. No pericardial or pleural effusion. No focal infiltrate or nodule at the lung bases. Liver: Congenital hypoplasia of the medial segments of the left hepatic lobe. Density consistent with mild hepatic steatosis. Punctate calcification suggest a history of granulomatous disease. Biliary: No gross biliary ductal dilatation allowing for noncontrast technique. Normal gallbladder. Pancreas: Moderate parenchymal atrophy. Spleen: Punctate calcification suggest a history of granulomatous disease. Adrenal glands: Normal noncontrast appearance. Kidneys and ureters: Prominent renal vascular calcification. Nonspecific moderate bilateral perinephric fat stranding. Mild cortical atrophy may be present bilaterally. Few underlying cysts may be present in the left kidney, one of which is hyperdense suggesting hemorrhagic or proteinaceous debris. No hydronephrosis. Ureters nondistended. Bladder: Circumferential bladder wall thickening. Pelvic organs: Prostate enlargement likely secondary to benign prostatic hyp erplasia. Bowel: Mild stool burden throughout normal caliber colon. Mild distention of small bowel without convincing evidence of high-grade partial or complete bowel obstruction. A loop of unobstructed small bowel is contained within the periumbilical hernia. There is trace pericholecystic fluid and infiltrative change in the immediately upstream or downstream loops of small bowel. The appendix is not visualized. Scattered hyperdense material within the small bowel may certainly relate to medication administration. Trace hiatal hernia. Peritoneal cavity: No free fluid or intraperitoneal gas. Lymph nodes: No gross lymphadenopathy allowing for noncontrast technique. Vasculature: Atherosclerosis of the normal caliber abdominal aorta. Abdominal wall: Prominent umbilical hernia containing an unobstructed loop of small bowel. Associated trace fluid. The mesenteric fat within the hernia sac is not infiltrated. Bilateral fat-containing inguinal hernias. Gynecomastia. Musculoskeletal: Degenerative changes of the spine. Lumbar fusion hardware. IMPRESSION: 1. Umbilical hernia containing an unobstructed loop of small bowel and trace fluid. No infiltrative changes within the hernia sac to raise concern for strangulation. Correlate clinically for reducibility. There may be a low-grade partial bowel obstruction. No convincing evidence of a high-grade partial or complete bowel obstruction. 2. Prostatomegaly with chronic bladder outlet obstruction. 3. Additional findings as above. Electronically signed by: Jethro Villanueva M.D. 07/03/2019 10:58 PM Blood Pressure Blood Pressure Findings: Elevated blood pressure Blood Pressure Disposition: further management by hospitalist [facility] Narrative This patient comes in as described above. He has a known ventral hernia that he felt was more distended and firm today. he is also having some abdominal pain. No fever or chills. No trauma. No vomiting. He looks well on exam. The hernia is large and only mildly tender. When I press on it, it does get smaller but does not completely reduce. He tells me it never completely reduces. IV access established blood work was obtained and I did a CAT scan. He was given a fluid bolus he was kept n.p.o. The CAT scan does not show any bowel obstruction. There is a loop of bowel within the hernia. I discussed with Dr. Oneal, he does agree that the patient should be observed and kept n.p.o. after midnight for possible surgery in the morning. I discussed the case with Dr. Lanza and he will admit the patient for these measures. Impression & Plan Abdominal pain, Umbilical hernia, Diabetes Discharge Plan Visit Data *Final* Discharge Date/Time: 07/04/19 01:16 Chief Complaint: Abdominal Pain Stated Complaint: HERNIA ON ABD, TURNED HARD, PAIN IN STOMACH ED Provider: Woody Blake Discharge Problem: Abdominal pain, Umbilical hernia, Diabetes Patient Disposition: Admitted As Inpatient Discharge Instructions Interventions: ED Discharge Assessment Last Done: 07/04/19 01:16 The scribe's documentation has been prepared under my direction and personally reviewed by me in its entirety. I confirm that the note above accurately reflects all work, treatment, procedures, and medical decision making performed by me.
[2019-07-04 00:43] LABS: Appearance Urine Clear (Clear); Bacteria Urine Automated Negative (Negative); Bilirubin Urine Negative (Negative); Blood Urine 1+ (Negative); Color Urine Yellow; Glucose Urine UA Negative (Negative); Ketones Urine Negative (Negative); Leukocyte Esterase Urine 1+ (Negative); Nitrite Urine Negative (Negative); Protein Urine Trace (Negative); Specific Gravity Urine 1.019 (1.000-1.030); Urobilinogen Urine Negative (Negative)
--- NOTE | 2019-07-04 01:06 | History & Physical Report ---
Date of Service July 04, 2019 Assessment & Plan (1) Umbilical hernia: NPO IVF Surgery consult in the am. Present on Admission?: Yes (2) Abdominal pain: Pain control Nausea control Present on Admission?: Yes (3) CAD (coronary artery disease): Tele monitoring. Present on Admission?: Yes (4) Uncontrolled diabetes mellitus with microalbuminuria: Patient is NPO. Will check sugars and cover with sliding scale until able to take orals and home meds again. Present on Admission?: Yes (5) Prostate enlargement: Present on Admission?: Yes History of Present Illness 78 year old male presented to the ED complaining of sudden onset of periumbilical abdominal pain. He reported that his abdomen felt hard and was painful to touch around his chronic umbilical hernia site. H He had a bowel movement on 07/03.. He has had an umbilical hernia for over 30 years and has felt these symptoms before, but had resolved in short time. This time with resting he had no improvement. The patient denies nausea, vomiting, diarrhea, F/C, cough, SOB, CP or dysuria. Primary Care Provider: Bradley Hill MD Allergies Allergy/AdvReac Type Severity Reaction Status Date / Time No Known Allergies Allergy Verified 07/03/19 23:17 Home Medications Home Medications Medication Instructions Recorded Confirmed Type atorvastatin [Lipitor] 80 mg PO HS 10/10/18 07/03/19 History diazepam [Valium] 5 mg PO BID PRN 10/10/18 07/03/19 History docusate sodium 200 mg PO HS 10/10/18 07/03/19 History fluticasone propionate [Flonase 2 spray INTRANASAL QAM 10/10/18 07/03/19 History Allergy Relief] lisinopril [Zestril] 10 mg PO QAM 10/10/18 07/03/19 History metoprolol succinate [Toprol XL] 50 mg PO QAM 10/10/18 07/03/19 History multivitamin 1 cap PO QDL 10/10/18 07/03/19 History sulindac 200 mg PO BID 10/10/18 07/03/19 History tolterodine [Detrol] 2 mg PO BID 10/10/18 07/03/19 History trazodone 200 mg PO HS 10/10/18 07/03/19 History hydrocodone-acetaminophen [Vicodin] 1 tab PO Q6H PRN #20 tab 03/14/19 07/03/19 Rx meclizine 25 mg tablet 25 mg PO QAM #90 tab 04/03/19 07/03/19 Rx glimepiride 4 mg tablet 4 mg PO BID #180 tab 05/02/19 07/03/19 Rx magnesium 64 mg (magnesium 128 mg PO TID #540 tab 05/08/19 07/03/19 Rx chloride) tablet,delayed release venlafaxine ER 75 mg 225 mg PO QAM #270 cap 05/08/19 07/03/19 Rx capsule,extended release 24 hr acarbose 50 mg tablet 50 mg PO TID #270 tab 05/16/19 07/03/19 Rx calcium carbonate 600 mg (1,500 1 tab PO BID tab 05/25/19 07/03/19 History mg)-vitamin D3 200 unit tablet dulaglutide 0.75 mg/0.5 mL 1.5 mg SUBCUT WK ml 05/25/19 07/03/19 History subcutaneous pen injector finasteride 5 mg tablet 5 mg PO HS #90 tab 06/21/19 07/03/19 Rx loratadine 10 mg tablet 10 mg PO DAILY #90 tab 06/29/19 07/03/19 Rx sitagliptin 100 mg tablet 100 mg PO DAILY #90 tab 06/29/19 07/03/19 Rx aspirin 81 mg PO DAILY 07/03/19 07/03/19 History Past Med/Surg History Medical History Anxiety BPH (benign prostatic hyperplasia) CAD (coronary artery disease) CABG X3 (2013) CKD (chronic kidney disease) BASELINE CREATININE 1.5-1.7 RANGE PER CHART REVIEW Chronic back pain Depression Diabetes mellitus, type 2 NIDDM Hearing deficit Hyperlipidemia Hypertension Ischemic cardiomyopathy Kidney stones Myocardial Infarction ? 2013 Osteoarthritis Right inguinal hernia Tremor of both hands Surgical History History of appendectomy History of cardiac cath 2014 History of colonoscopy History of coronary artery bypass graft CABG X3 (2013) History of laminectomy LUMBAR BACK SURGERY X 2 History of lithotripsy History of open reduction and internal fixation (ORIF) procedure RIGHT LLE/ANKLE 2/2 FALL History of tooth extraction ALL TEETH EXTRACTED History of umbilical hernia repair Hx of transurethral resection of prostate Family History Sister Pancreatic cancer Other No family history of adverse response to anesthesia Social History Preferred Language: Malawian Communication Ability: Effective 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 Beliefs That Will Affect Care: None Current Living Situation: Spouse Feels Safe at Home: Yes Smoking Status: Never smoker Second Hand Exposure: No ; Hx Alcohol Use: Yes Alcohol type: beer Hx Substance Use: No Review of Systems Constitutional: no fever, no chills and no weight loss Eyes: no eye pain and no photophobia Ear, Nose, Mouth, Throat: no tinnitus, no dizziness and no epistaxis Respiratory: no cough, no dyspnea on exertion, no hemoptysis and no wheezing Cardiovascular: no chest pain, no chest pain with activity, no palpitations and no edema Gastrointestinal: as per Subjective / HPI Musculoskeletal: no radicular pain, no joint pain and no stiffness Integumentary: no rash, no urticaria and no yellowing of the skin Neurologic: + tremor(s) (Has chronic tremor); no localized weakness, no genera lized weakness and no headache(s) Psychiatric: no depression and no anxiety Endocrine: no polyuria and no heat intolerance Hematologic / Lymphatic: no easy bruising Allergy / Immunological: no seasonal rhinorrhea Physical Exam Constitutional: cooperative; no acute distress Eyes: PERRL, conjunctivae normal, anicteric sclerae EOM intact bilaterally ENMT: external ear and nose normal, oropharynx normal Neck: trachea midline, no thyromegaly Respiratory: normal respiratory effort, lungs clear to auscultation Auscultation: no crackles, no rhonchi and no wheezes Cardiovascular: RRR, no murmur, no edema Gastrointestinal (Abdomen): Inspection/Auscultation: normal bowel sounds Percussion/Palpation: + abdomen tender (over umbilical hernia), abdomen soft and + hernia (Umbilical, unable to reduce due to pain.) Musculoskeletal: no cyanosis or clubbing, extremities motor strength 5/5 Skin: no rashes, warm and dry Neurologic: PERRL, EOMI, accommodation nl, no face palsy, no dysarthria CN's II-XI intact bilaterally Psychiatric: A+Ox3, euthymic affect Lymphatic: no cervical or axillary lymphadenopathy Results & Data Vital Signs (Past 12 Hours) Vital Signs Temp Pulse Pulse Resp BP BP Pulse Ox 07/04/19 00:22 62 18 152/69 H 97 07/03/19 22:43 61 16 159/67 H 99 07/03/19 21:53 36.5 C 68 18 157/73 H 95 Diagnostic Findings I personally reviewed the CT abdomen/pelvis results. Code Status & VTE Plan VTE Prophylaxis Plan VTE Prophylaxis will be ordered: Yes PG Care Time/CCT Total # of Minutes Spent Total Time Spent: 45 Total Time Spent with Patient: Total time spent is greater than 50% in coordination of care (as documented) at patient's floor/unit and/or counseling patient: (1) Umbilical hernia Obstruction and gangrene presence: without obstruction or gangrene Qualified Code(s): K42.9 - Umbilical hernia without obstruction or gangrene (2) Abdominal pain Abdominal location: unspecified location Qualified Code(s): R10.9 - Unspecified abdominal pain
[2019-07-04] MEDS ORDERED: DEXTROSE 50% 50 ML SYRINGE IV PRN (01:23)
[2019-07-04] MEDS ORDERED: CARBOHYDRATES FOR HYPOGLYCEMIA PO PRN (01:23)
[2019-07-04] MEDS ORDERED: MoRPHine SULFATE 2 MG/ML CARP IV PRN (01:23)
[2019-07-04] MEDS ORDERED: MoRPHine SULFATE 4 MG/ML 1 ML CARP\\VIAL IV PRN ×2 (01:23→14:44)
[2019-07-04] MEDS ORDERED: KETOROLAC TROMETHAMINE 15 MG/ML VIAL IV PRN (01:23)
[2019-07-04] MEDS ORDERED: GLUCAGON FOR INJ 1 MG VIAL SQ PRN (01:23)
[2019-07-04] MEDS ORDERED: LACTATED RINGER'S 1,000 ML IV SCH (01:23)
[2019-07-04] MEDS ORDERED: GLUCOSE 10 TABS/TUBE PO PRN (01:23)
[2019-07-04] MEDS ORDERED: ONDANSETRON INJ 2 MG/ML 2 ML VIAL IV PRN (01:23)
[2019-07-04] MEDS ORDERED: GLUCOSE 40% GEL 15 GM TUBE PO PRN (01:23)
[2019-07-04 02:46] LABS: Hematocrit (blood only) 37.7 % (42-52); Hemoglobin 12.7 g/dL (14.0-18.0); Mean Corpuscular Hgb Conc 33.7 g/dL (32-36); Mean Platelet Volume 11.3 fL (7.4-10.4); Platelet Count 181 K/uL (130-400); RDW Coefficient of Variation 13.8 % (11.5-14.5); RDW Standard Deviation 45.3 fL (36.4-46.3); Red Blood Count 4.19 M/uL (4.7-6.1); White Blood Count 10.06 K/uL (4.8-10.8)
[2019-07-04 03:05] LABS: BUN Creatinine Ratio 20.2 (10-20); Calcium 8.6 mg/dl (8.5-10.1); Creatinine Clr Calc Pharmacy 49.1 ml/min; Est GFR (African American) 60.7; Est GFR (Non-African American) 52.4; Magnesium 1.4 mg/dl (1.8-2.4); Potassium 4.5 mmol/L (3.5-5.1)
[2019-07-04] MEDS: D5W AND 1/2NSS 1,000 ML IV SCH ×2 (05:43→19:42)
[2019-07-04] MEDS ORDERED: INSULIN ASPART 100 UNITS/ML 3 ML PEN SC SCH (06:00)
--- NOTE | 2019-07-04 10:00 | Surgery Consultation ---
Date of Consultation July 04, 2019 Assessment & Plan (1) Umbilical hernia: Chronically incarcerated umbilical hernia but now enlarging. Would recommend hernia repair, he agreed to proceed today. Supervising Physician Co-Signing Physician Notes Patient seen and examined, labs and imaging reviewed, agree with above. 78-year-old male with known history of umbilical hernia that yesterday became larger and caused more abdominal pain. He was seen in the emergency department had a CT scan which showed a small piece of bowel within the hernia but no obvious obstruction. I discussed the case with the emergency department and, he had no evidence of strangulation or obstruction, but they were concerned about sending him home. He was admitted to the medicine service. His pain is improved overnight, the hernia is still present but back to its normal size. It appears to be chronically incarcerated. On exam he has an incarcerated umbilical hernia with no signs of strangulation or obstruction. No peritonitis. Plan for umbilical hernia repair The risk of the procedure were discussed to include but not limited to bleeding, infection, recurrence, damage to surrounding structures, need for future or more extensive surgery, and the risk of anesthesia Diagnosis, details of the surgery and recovery, and plan of care discussed the patient and his , all questions were answered, the patient expressed u nderstanding and agrees with plan of care as stated History of Present Illness Attending Physician: Darwin Flynn History of Present Illness 78 y/o male with long standing umbilical hernia became larger and hard last evening. Not painful today, and has returned closer to previous size. No N/V. CT showed small bowel in the hernia, possible low grade obstruction. Allergies Allergy/AdvReac Type Severity Reaction Status Date / Time No Known Allergies Allergy Verified 07/03/19 23:17 Home Medications Home Medications Medication Instructions Recorded Confirmed Type atorvastatin [Lipitor] 80 mg PO HS 10/10/18 07/03/19 History diazepam [Valium] 5 mg PO BID PRN 10/10/18 07/03/19 History docusate sodium 200 mg PO HS 10/10/18 07/03/19 History fluticasone propionate [Flonase 2 spray INTRANASAL QAM 10/10/18 07/03/19 History Allergy Relief] lisinopril [Zestril] 10 mg PO QAM 10/10/18 07/03/19 History metoprolol succinate [Toprol XL] 50 mg PO QAM 10/10/18 07/03/19 History multivitamin 1 cap PO QDL 10/10/18 07/03/19 History sulindac 200 mg PO BID 10/10/18 07/03/19 History tolterodine [Detrol] 2 mg PO BID 10/10/18 07/03/19 History trazodone 200 mg PO HS 10/10/18 07/03/19 History hydrocodone-acetaminophen [Vicodin] 1 tab PO Q6H PRN #20 tab 03/14/19 07/03/19 Rx meclizine 25 mg tablet 25 mg PO QAM #90 tab 04/03/19 07/03/19 Rx glimepiride 4 mg tablet 4 mg PO BID #180 tab 05/02/19 07/03/19 Rx magnesium 64 mg (magnesium 128 mg PO TID #540 tab 05/08/19 07/03/19 Rx chloride) tablet,delayed release venlafaxine ER 75 mg 225 mg PO QAM #270 cap 05/08/19 07/03/19 Rx capsule,extended release 24 hr acarbose 50 mg tablet 50 mg PO TID #270 tab 05/16/19 07/03/19 Rx calcium carbonate 600 mg (1,500 1 tab PO BID tab 05/25/19 07/03/19 History mg)-vitamin D3 200 unit tablet dulaglutide 0.75 mg/0.5 mL 1.5 mg SUBCUT WK ml 05/25/19 07/03/19 History subcutaneous pen injector finasteride 5 mg tablet 5 mg PO HS #90 tab 06/21/19 07/03/19 Rx loratadine 10 mg tablet 10 mg PO DAILY #90 tab 06/29/19 07/03/19 Rx sitagliptin 100 mg tablet 100 mg PO DAILY #90 tab 06/29/19 07/03/19 Rx aspirin 81 mg PO DAILY 07/03/19 07/03/19 History Patient History Medical History Anxiety BPH (benign prostatic hyperplasia) CAD (coronary artery disease) CABG X3 (2013) CKD (chronic kidney disease) BASELINE CREATININE 1.5-1.7 RANGE PER CHART REVIEW Chronic back pain Depression Diabetes mellitus, type 2 NIDDM Hearing deficit Hyperlipidemia Hypertension Ischemic cardiomyopathy Kidney stones Myocardial Infarction ? 2013 Osteoarthritis Right inguinal hernia Tremor of both hands Surgical History History of appendectomy History of cardiac cath 2014 History of colonoscopy History of coronary artery bypass graft CABG X3 (2014) History of laminectomy LUMBAR BACK SURGERY X 2 History of lithotripsy History of open reduction and internal fixation (ORIF) procedure RIGHT LLE/ANKLE 2/2 FALL History of tooth extraction ALL TEETH EXTRACTED History of umbilical hernia repair Hx of transurethral resection of prostate Family History Sister Pancreatic cancer Other No family history of adverse response to anesthesia Social History Preferred Language: Bulgarian Communication Ability: Effective Poiser Required: No Beliefs That Will Affect Care: None Current Living Situation: Spouse Other Information That Helps Us Care for You: No Feels Safe at Home: Yes Safety Concerns: Feels Safe At This Time Smoking Status: Never smoker Second Hand Exposure: No ; Hx Alcohol Use: Yes Alcohol type: beer Hx Substance Use: No Review of Systems Constitutional: no fever, no chills and no weight loss Cardiovascular: no chest pain and no dyspnea Gastrointestinal: + abdominal pain; no bloating, no nausea and no vomiting Physical Exam Constitutional: WD/WN, vitals as above Respiratory: normal respiratory effort, lungs clear to auscultation Cardiovascular: RRR, no murmur, no edema Gastrointestinal (Abdomen): Percussion/Palpation: abdomen soft and + hernia (golf ball sized umbilical hernia, nonreducible, nontender); abdomen nontender Results & Data Vital Signs (Past 12 Hours) Vital Signs Temp Pulse Resp BP Pulse Ox 07/04/19 07:27 36.8 C 58 L 18 135/71 96 07/04/19 01:28 36.7 C 67 18 157/77 H 96 07/04/19 01:08 63 20 142/67 H 97 07/04/19 00:22 62 18 152/69 H 97 07/03/19 22:43 61 16 159/67 H 99 PG Care Time/CCT Total # of Minutes Spent Total Time Spent with Patient: Total time spent is greater than 50% in coordination of care (as documented) at patient's floor/unit and/or counseling patient: (1) Umbilical hernia Obstruction and gangrene presence: without obstruction or gangrene Qualified Code(s): K42.9 - Umbilical hernia without obstruction or gangrene
[2019-07-04] MEDS: MAGNESIUM SULFATE / D5W 1 GM/100 ML BAG IV SCH ×2 (10:41→11:42)
--- NOTE | 2019-07-04 11:16 | Anesthesiology Consultation ---
Date of Service July 04, 2019 Assessment & Plan (1) Encounter for pre-operative examination: Chart Review Chart Review: Acceptable Risk for Surgery and Patient NOT seen in Pre Admission Testing Consults Requested none ASA ASA3 Proposed Anesthesia Anesthesia Type: General History Surgery Operation Date: 07/04/19 09:30 Proposed Procedures p Open Umbilical Hernia Repair - Edwardo Oneal DO, FACS Height/Weight Height: 5 ft 5 in Weight: 94.8 kg Allergies Allergy/AdvReac Type Severity Reaction Status Date / Time No Known Allergies Allergy Verified 07/03/19 23:17 Medications Home Medications Medication Instructions Recorded Confirmed Last Taken atorvastatin [Lipitor] 80 mg PO HS 10/10/18 07/03/19 03/13/19 21:00 diazepam [Valium] 5 mg PO BID PRN 10/10/18 07/03/19 Unknown docusate sodium 200 mg PO HS 10/10/18 07/03/19 03/13/19 21:00 fluticasone propionate [Flonase 2 spray INTRANASAL QAM 10/10/18 07/03/19 03/13/19 10:00 Allergy Relief] lisinopril [Zestril] 10 mg PO QAM 10/10/18 07/03/19 03/13/19 09:00 metoprolol succinate [Toprol XL] 50 mg PO QAM 10/10/18 07/03/19 03/13/19 09:00 multivitamin 1 cap PO QDL 10/10/18 07/03/19 03/13/19 09:00 sulindac 200 mg PO BID 10/10/18 07/03/19 03/13/19 21:00 tolterodine [Detrol] 2 mg PO BID 10/10/18 07/03/19 03/13/19 21:00 trazodone 200 mg PO HS 10/10/18 07/03/19 03/13/19 21:00 hydrocodone-acetaminophen [Vicodin] 1 tab PO Q6H PRN #20 tab 03/14/19 07/03/19 Unknown meclizine 25 mg tablet 25 mg PO QAM #90 tab 04/03/19 07/03/19 Unknown glimepiride 4 mg tablet 4 mg PO BID #180 tab 05/02/19 07/03/19 Unknown magnesium 64 mg (magnesium 128 mg PO TID #540 tab 05/08/19 07/03/19 Unknown chloride) tablet,delayed release venlafaxine ER 75 mg 225 mg PO QAM #270 cap 05/08/19 07/03/19 Unknown capsule,extended release 24 hr acarbose 50 mg tablet 50 mg PO TID #270 tab 05/16/19 07/03/19 Unknown calcium carbonate 600 mg (1,500 1 tab PO BID tab 05/25/19 07/03/19 Unknown mg)-vitamin D3 200 unit tablet dulaglutide 0.75 mg/0.5 mL 1.5 mg SUBCUT WK ml 05/25/19 07/03/19 Unknown subcutaneous pen injector finasteride 5 mg tablet 5 mg PO HS #90 tab 06/21/19 07/03/19 Unknown loratadine 10 mg tablet 10 mg PO DAILY #90 tab 06/29/19 07/03/19 Unknown sitagliptin 100 mg tablet 100 mg PO DAILY #90 tab 06/29/19 07/03/19 Unknown aspirin 81 mg PO DAILY 07/03/19 07/03/19 Unknown Active Medications Generic Name Dose Route Start Last Admin Trade Name Freq PRN Reason Stop Dose Admin Dextrose/Sodium Chloride 1,000 mls @ 80 mls/hr 07/04/19 05:45 07/04/19 10:41 D5w And 1/2nss IV 08/03/19 05:44 0 mls/hr .[id number] HALLE Infusion Magnesium Sulfate/Dextrose 1 gm in 100 mls @ 100 mls/hr 07/04/19 09:30 07/04/19 10:41 Magnesium Sulfate / D5w IV 07/04/19 11:29 100 mls/hr Q1H HALLE Administration Insulin Aspart 0 units 07/04/19 06:00 07/04/19 05:20 Novolog Flexpen SC 08/03/19 05:59 Not Given Q6 HALLE Morphine Sulfate 2 mg 07/04/19 01:23 07/04/19 01:33 Morphine Sulfate IV 07/18/19 01:22 2 mg Q3H PRN Administration Moderate Pain (4,5,6) NPO Date Last Intake of Fluids: 07/03/19 Time Last Intake of Fluids: 23:59 Date Last Intake of Solids: 07/03/19 Time Last Intake of Solids: 23:59 Past Medical History Medical History Anxiety BPH (benign prostatic hyperplasia) CAD (coronary artery disease) CABG X3 (2013) CKD (chronic kidney disease) BASELINE CREATININE 1.5-1.7 RANGE PER CHART REVIEW Chronic back pain Depression Diabetes mellitus, type 2 NIDDM Hearing deficit Hyperlipidemia Hypertension Ischemic cardiomyopathy Kidney stones Myocardial Infarction ? 2013 Osteoarthritis Right inguinal hernia Tremor of both hands Past Family History Family History Sister Pancreatic cancer Other No family history of adverse response to anesthesia Past Surgical History Surgical History History of appendectomy History of cardiac cath 2014 History of colonoscopy History of coronary artery bypass graft CABG X3 (2013) History of laminectomy LUMBAR BACK SURGERY X 2 History of lithotripsy History of open reduction and internal fixation (ORIF) procedure RIGHT LLE/ANKLE 2/ FALL History of tooth extraction ALL TEETH EXTRACTED History of umbilical hernia repair Hx of transurethral resection of prostate Social History Smoking Status: Never smoker Hx Alcohol Use: Yes Alcohol type: beer alcohol intake frequency: a few times a month Hx Substance Use: No substance use type: does not use Physical Exam Vital Signs Last Vital Signs Temp 36.8 C 07/04/19 07:27 Pulse 58 L 07/04/19 07:27 Resp 18 07/04/19 07:27 BP 135/71 07/04/19 07:27 Pulse Ox 96 07/04/19 07:27 Testing Laboratory Results 07/04/19 02:32 07/04/19 02:32 Urine Color Yellow 07/03/19 23:54 Urine Appearance Clear (Clear) 07/03/19 23:54 Urine pH 5.0 (4.5-7.5) 07/03/19 23:54 Ur Specific [place] 1.019 (1.000-1.030) 07/03/19 23:54 Urine Protein Trace (Negative) H 07/03/19 23:54 Urine Glucose (UA) Negative (Negative) 07/03/19 23:54 Urine Ketones Negative (Negative) 07/03/19 23:54 Urine Nitrite Negative (Negative) 07/03/19 23:54 Ur Leukocyte Esterase 1+ (Negative) H 07/03/19 23:54 Urine WBC (Auto) 10-30 /hpf (0-5) H 07/03/19 23:54 Urine RBC (Auto) 5-10 /hpf (0-4) H 07/03/19 23:54 U Hyaline Cast (Auto) 1-5 /lpf (0-5) 07/03/19 23:54 U Epithel Cells (Auto) 5-10 /lpf (0-5) H 07/03/19 23:54 Urine Bacteria (Auto) Negative (Negative) 07/03/19 23:54 07/04/19 07/04/19 06:53 05:10 POC Glucose 98 74
[2019-07-04] MEDS ORDERED: BUPIVACAINE 0.5 % 5 MG/1 ML MPF 30ML VIAL ONE (11:56)
[2019-07-04] MEDS ORDERED: fentaNYL citrate 100 MCG/2 ML VIAL ONE (12:02)
[2019-07-04] MEDS ORDERED: ROCURONIUM BROMIDE 10 MG/ML 5 ML VIAL ONE (12:02)
[2019-07-04] MEDS ORDERED: ONDANSETRON INJ 2 MG/ML 2 ML VIAL ONE (12:02)
[2019-07-04] MEDS ORDERED: DEXAMETHASONE SOD INJ 4 MG/ML VIAL ONE (12:02)
[2019-07-04] MEDS ORDERED: LIDOCAINE HCL 2% 2 ML VIAL/AMP(20MG/ML) INFIL ONE (12:02)
[2019-07-04] MEDS ORDERED: PROPOFOL IV EMULSION 10 MG/ML 20 ML VIAL IV ONE (12:02)
[2019-07-04] MEDS ORDERED: ATROPINE SULFATE 0.1 MG/ML 10ML SYR IV PRN (12:09)
[2019-07-04] MEDS ORDERED: ePHEDrine sulfate 50 MG/ML AMP IV PRN (12:09)
[2019-07-04] MEDS ORDERED: HYDROmorphone INJ 1 MG/ML SYRINGE IV PRN (12:09)
[2019-07-04] MEDS ORDERED: CEFAZOLIN 2,000 MG/15 ML IV PUSH IV ONE (12:49)
[2019-07-04] MEDS ORDERED: CEFAZOLIN 2000MG 2,000 MG/15 ML SYR IV ONE (12:50)
[2019-07-04] MEDS ORDERED: GLYCOPYRROLATE 0.2 MG/ML VIAL ONE (13:18)
[2019-07-04] MEDS ORDERED: NEOSTIGMINE METHYLSULFATE 1 MG/ML 10ML VIAL ONE (13:18)
--- NOTE | 2019-07-04 13:46 | Operative Report ---
Post Operative Report Pre & Post Diagnosis Operation Date: 07/04/19 09:30 Pre-Op Diagnosis: incarcerated umbilical hernia Post-Op Diagnosis: incarcerated umbilical hernia Procedure Operation Date: 07/04/19 09:30 Actual Procedures p Open Umbilical Hernia Repair - Edwardo Oneal DO, RADHA Surgeon Edwardo Oneal DO, RADHA [employer] Tax[employer] Operator Abisai Bass Estimated Blood Loss 4 Findings Consistent with Post-Op Diagnosis Chronically incarcerated umbilical hernia reduced. 1.5 cm defect closed primarily with interrupted 0 Nurolon sutures. Specimens None Anesthesia Type General Complications none Disposition Accompanied Patient To Recovery: No Disposition: Recovery Room Indications 78-year-old male admitted overnight with chronically incarcerated umbilical hernia with increased pain and a small bowel loop with no evidence of strangulation or obstruction. Plan for umbilical hernia repair. The risks of the procedure were discussed, all questions were answered, and the patient agreed to proceed with surgery as planned. Description of Procedure The patient was properly identified, consented, and taken to the operating room where he was placed in the supine position. General endotracheal anesthesia was induced. SCDs and a safety belt were placed. Preoperative antibiotics were administered. The patient's abdomen was prepped and draped in the standard sterile fashion. Surgical timeout was performed and all parties were in agreement that this was the correct patient and procedure to be performed and we continued as planned. A curvilinear infraumbilical incision was made and deepened down to the fascia with blunt dissection. The hernia was chronically incarcerated and were able to free up the hernia sac from the surrounding tissue. The umbilical stalk was circumferentially dissected with a Cassandra, and divided below the level of the skin. The hernia was reduced and a portion of the hernia sac was resected. This was not sent to pathology. A 1.5 cm fascial defect was encountered. The hernia was reduced. The fascia anteriorly and posteriorly was cleared of investing tissue for several centimeters. Hemostasis was achieved within the wound. The hernia defect was closed primarily with interrupted 0 Nurolon sutures. The wound was irrigated and hemostasis confirmed. The umbilicus was tacked down to the fascia with 3-0 Vicryl sutures. Local anesthetic in the form of 0.5% Marcaine was injected in the fascia and along the skin incision. The skin was closed with interrupted 3-0 Vicryl deep dermal sutures, followed by 4-0 Monocryl running subcuticular suture. Dermabond was placed over the wound. The patient was extubated in the operating room and taken to the PACU where he recovered without apparent incident. All sponge, instrument and needle counts were correct at the conclusion of the procedure. The patient tolerated the procedure well. The physician's food and beverage assistant manager was present and scrubbed for the entire to the case. He was critical in positioning the patient, prepping and draping, retraction and exposure, closure the incisions, and placement of the dressings. I attest to the content of the Intraoperative Record and any orders documented therein. Any exceptions are noted below.
[2019-07-04] MEDS ORDERED: OXYCODONE/ACETAMINOPHEN 5mg/325mg TAB PO PRN ×2 (14:44)
--- NOTE | 2019-07-04 15:50 | Anesthesiology Progress Note ---
Date of Service July 04, 2019 Anesthesia Post Procedure Vital Signs Vital Signs: Temp Pulse Pulse Pulse Resp BP BP 07/04/19 15:46 36.4 C L 62 18 160/74 H 07/04/19 15:12 36.8 C 59 L 16 160/73 H 07/04/19 14:45 37.0 C 62 14 150/63 H 07/04/19 14:35 37.0 C 07/04/19 14:31 60 14 07/04/19 14:30 60 13 140/82 07/04/19 14:26 60 15 07/04/19 14:25 61 13 143/72 H 07/04/19 14:21 60 16 07/04/19 14:20 62 12 153/66 H 07/04/19 14:16 59 L 14 07/04/19 14:15 58 L 11 L 138/86 07/04/19 14:10 59 L 9 L 148/64 H 07/04/19 14:06 59 L 14 153/68 H 07/04/19 14:05 61 20 07/04/19 14:02 67 15 157/72 H 07/04/19 14:00 71 13 07/04/19 13:59 74 15 07/04/19 13:58 36.3 C L 79 74 13 172/77 H 177/77 H 07/04/19 11:30 36.9 C 68 20 149/81 H 07/04/19 07:27 36.8 C 58 L 18 135/71 07/04/19 01:28 36.7 C 67 18 157/77 H 07/04/19 01:08 63 20 142/67 H 07/04/19 00:22 62 18 152/69 H 07/03/19 22:43 61 16 159/67 H 07/03/19 21:53 36.5 C 68 18 157/73 H Pulse Ox 07/04/19 15:46 91 07/04/19 15:12 93 07/04/19 14:45 93 07/04/19 14:35 93 07/04/19 14:31 93 07/04/19 14:30 92 07/04/19 14:26 92 07/04/19 14:25 94 07/04/19 14:21 95 07/04/19 14:20 94 07/04/19 14:16 100 07/04/19 14:15 100 07/04/19 14:10 100 07/04/19 14:06 100 07/04/19 14:05 98 07/04/19 14:02 92 07/04/19 14:00 96 07/04/19 13:59 99 07/04/19 13:58 94 07/04/19 11:30 97 07/04/19 07:27 96 07/04/19 01:28 96 07/04/19 01:08 97 07/04/19 00:22 97 07/03/19 22:43 99 07/03/19 21:53 95 Pain Intensity Abdomen: Pain Intensity: 0 Transfer of Care Handoff Completed per policy Notes Mental Status: alert / awake / arousable Patient Amnestic to Procedure: Yes Nausea / Vomiting: adequately controlled Pain: adequately controlled Airway Patency, RR, SpO2: stable & adequate BP & HR: stable & adequate Hydration State: stable & adequate Anesthetic Complications: no major complications apparent and Pt Satisfied with anesthetic care
[2019-07-04] MEDS ORDERED: Nursing to Pharmacy Communication ONE (16:04)
[2019-07-04] MEDS: INSULIN ASPART 100 UNITS/ML 3 ML PEN SC SCH ×2 (18:11→21:08)
[2019-07-04] MEDS ORDERED: LANTUS PER UNIT CHARGE SC SCH (21:45)
--- NOTE | 2019-07-04 22:22 | Hospitalist Progress Note ---
Date of Service July 04, 2019 Assessment & Plan (1) Umbilical hernia: w/ incarceration s/p repair today by Dr Oneal doing well post-op watch overnight d/c home tomorrow if doing well from surgical standpoint (2) Diabetes: typically on oral agents at home anticipate sugars to be high in light of surgery; also received IV steroids perioperatively adjust novolog consider lantus (3) CAD (coronary artery disease): stable no ischemic symptoms restart asa when ok w/ surgery cont BB cont statin (4) Hypercholesteremia: statin Subjective saw patient post-op from his umbilical hernia with incarceration repair he felt very good pain in abdomen that he had at presentation was resolved no nausea/emesis/cp/dyspnea Review of Systems Constitutional: no fever Respiratory: no cough and no dyspnea Cardiovascular: no chest pain Physical Exam Constitutional: well developed, well nourished and + obese; no acute distress and no altered mental status ENMT: external ear and nose normal, oropharynx normal Respiratory: normal respiratory effort, lungs clear to auscultation Cardiovascular: Rate/Rhythm: regular rate and regular rhythm Heart Sounds: normal S1 and normal S2; no murmur Vessels: posterior tibial pulses present and dorsalis pedis pulses present; no JVD Extremities: no edema Gastrointestinal (Abdomen): Inspection/Auscultation: normal bowel sounds Percussion/Palpation: abdomen soft; abdomen nontender and no hepatosplenomegaly Skin: umbilical incision clean Psychiatric: A+Ox3, euthymic affect Results & Data Vital Signs (Past 12 Hours) Vital Signs Temp Pulse Pulse Pulse Resp BP BP 07/04/19 18:10 36.5 C 62 16 146/68 H 07/04/19 16:40 36.6 C 61 18 135/63 07/04/19 15:46 36.4 C L 62 18 160/74 H 07/04/19 15:12 36.8 C 59 L 16 160/73 H 07/04/19 14:45 37.0 C 62 14 150/63 H 07/04/19 14:35 37.0 C 07/04/19 14:31 60 14 07/04/19 14:30 60 13 140/82 07/04/19 14:26 60 15 07/04/19 14:25 61 13 143/72 H 07/04/19 14:21 60 16 07/04/19 14:20 62 12 153/66 H 07/04/19 14:16 59 L 14 07/04/19 14:15 58 L 11 L 138/86 07/04/19 14:10 59 L 9 L 148/64 H 07/04/19 14:06 59 L 14 153/68 H 07/04/19 14:05 61 20 07/04/19 14:02 67 15 157/72 H 07/04/19 14:00 71 13 07/04/19 13:59 74 15 07/04/19 13:58 36.3 C L 79 74 13 172/77 H 177/77 H 07/04/19 11:30 36.9 C 68 20 149/81 H Pulse Ox 07/04/19 18:10 92 07/04/19 16:40 92 07/04/19 15:46 91 07/04/19 15:12 93 07/04/19 14:45 93 07/04/19 14:35 93 07/04/19 14:31 93 07/04/19 14:30 92 07/04/19 14:26 92 07/04/19 14:25 94 07/04/19 14:21 95 07/04/19 14:20 94 07/04/19 14:16 100 07/04/19 14:15 100 07/04/19 14:10 100 07/04/19 14:06 100 07/04/19 14:05 98 07/04/19 14:02 92 07/04/19 14:00 96 07/04/19 13:59 99 07/04/19 13:58 94 07/04/19 11:30 97 Laboratory Results Laboratory Results - last 24 hr 07/03/19 07/03/19 07/03/19 22:19 22:19 23:54 WBC 8.68 RBC 4.30 L Hgb 13.4 L Hct 39.3 L MCV 91.4 MCH 31.2 MCHC 34.1 RDW Std Deviation 46.2 RDW Coeff of [place] 13.9 Plt Count 185 MPV 11.4 H Immature Gran % (Auto) 0.5 Neut % (Auto) 60.4 Lymph % (Auto) 24.5 [place] % (Auto) 6.5 Eos % (Auto) 7.8 Baso % (Auto) 0.3 Immature Gran # (Auto) 0.04 H Neut # (Auto) 5.24 Lymph # (Auto) 2.13 [place] # (Auto) 0.56 Eos # (Auto) 0.68 H Baso # (Auto) 0.03 Sodium 143 Potassium 4.7 Chloride 110 H Carbon Dioxide 29 Anion Gap 4.0 BUN 27 H Creatinine 1.45 H Est Cr Clr Drug Dosing 43.9 Est GFR ( Amer) 52.7 Est GFR (Non-Af Amer) 45.5 BUN/Creatinine Ratio 18.6 Glucose 99 POC Glucose Calcium 9.4 Magnesium Total Bilirubin 0.4 AST 17 ALT 26 Alkaline Phosphatase 96 Total Protein 6.9 Albumin 3.7 Globulin 3.2 Albumin/Globulin Ratio 1.1 Lipase 197 Urine Color Yellow Urine Appearance Clear Urine pH 5.0 Ur Specific [place] 1.019 Urine Protein Trace H Urine Glucose (UA) Negative Urine Ketones Negative Urine Blood 1+ H Urine Nitrite Negative Urine Bilirubin Negative Urine Urobilinogen Negative Ur Leukocyte Esterase 1+ H Urine WBC (Auto) 10-30 H Urine RBC (Auto) 5-10 H U Hyaline Cast (Auto) 1-5 U Epithel Cells (Auto) 5-10 H Urine Bacteria (Auto) Negative 07/04/19 07/04/19 07/04/19 02:32 02:32 05:10 WBC 10.06 RBC 4.19 L Hgb 12.7 L Hct 37.7 L MCV 90.0 MCH 30.3 MCHC 33.7 RDW Std Deviation 45.3 RDW Coeff of [place] 13.8 Plt Count 181 MPV 11.3 H Immature Gran % (Auto) Neut % (Auto) Lymph % (Auto) [place] % (Auto) Eos % (Auto) Baso % (Auto) Immature Gran # (Auto) Neut # (Auto) Lymph # (Auto) [place] # (Auto) Eos # (Auto) Baso # (Auto) Sodium 144 Potassium 4.5 Chloride 113 H Carbon Dioxide 26 Anion Gap 5.0 BUN 26 H Creatinine 1.29 Est Cr Clr Drug Dosing 49.1 Est GFR ( Amer) 60.7 Est GFR (Non-Af Amer) 52.4 BUN/Creatinine Ratio 20.2 H Glucose 82 POC Glucose 74 Calcium 8.6 Magnesium 1.4 L Total Bilirubin AST ALT Alkaline Phosphatase Total Protein Albumin Globulin Albumin/Globulin Ratio Lipase Urine Color Urine Appearance Urine pH Ur Specific [place] Urine Protein Urine Glucose (UA) Urine Ketones Urine Blood Urine Nitrite Urine Bilirubin Urine Urobilinogen Ur Leukocyte Esterase Urine WBC (Auto) Urine RBC (Auto) U Hyaline Cast (Auto) U Epithel Cells (Auto) Urine Bacteria (Auto) 07/04/19 07/04/19 07/04/19 06:53 14:20 16:39 WBC RBC Hgb Hct MCV MCH MCHC RDW Std Deviation RDW Coeff of [place] Plt Count MPV Immature Gran % (Auto) Neut % (Auto) Lymph % (Auto) [place] % (Auto) Eos % (Auto) Baso % (Auto) Immature Gran # (Auto) Neut # (Auto) Lymph # (Auto) [place] # (Auto) Eos # (Auto) Baso # (Auto) Sodium Potassium Chloride Carbon Dioxide Anion Gap BUN Creatinine Est Cr Clr Drug Dosing Est GFR ( Amer) Est GFR (Non-Af Amer) BUN/Creatinine Ratio Glucose POC Glucose 98 179 H 234 H Calcium Magnesium Total Bilirubin AST ALT Alkaline Phosphatase Total Protein Albumin Globulin Albumin/Globulin Ratio Lipase Urine Color Urine Appearance Urine pH Ur Specific [place] Urine Protein Urine Glucose (UA) Urine Ketones Urine Blood Urine Nitrite Urine Bilirubin Urine Urobilinogen Ur Leukocyte Esterase Urine WBC (Auto) Urine RBC (Auto) U Hyaline Cast (Auto) U Epithel Cells (Auto) Urine Bacteria (Auto) 07/04/19 07/04/19 20:50 20:52 WBC RBC Hgb Hct MCV MCH MCHC RDW Std Deviation RDW Coeff of [place] Plt Count MPV Immature Gran % (Auto) Neut % (Auto) Lymph % (Auto) [place] % (Auto) Eos % (Auto) Baso % (Auto) Immature Gran # (Auto) Neut # (Auto) Lymph # (Auto) [place] # (Auto) Eos # (Auto) Baso # (Auto) Sodium Potassium Chloride Carbon Dioxide Anion Gap BUN Creatinine Est Cr Clr Drug Dosing Est GFR ( Amer) Est GFR (Non-Af Amer) BUN/Creatinine Ratio Glucose POC Glucose 368 H* 305 H* Calcium Magnesium Total Bilirubin AST ALT Alkaline Phosphatase Total Protein Albumin Globulin Albumin/Globulin Ratio Lipase Urine Color Urine Appearance Urine pH Ur Specific [place] Urine Protein Urine Glucose (UA) Urine Ketones Urine Blood Urine Nitrite Urine Bilirubin Urine Urobilinogen Ur Leukocyte Esterase Urine WBC (Auto) Urine RBC (Auto) U Hyaline Cast (Auto) U Epithel Cells (Auto) Urine Bacteria (Auto) PG Care Time/CCT Total # of Minutes Spent Total Time Spent with Patient: Total time spent is greater than 50% in coordination of care (as documented) at patient's floor/unit and/or counseling patient: (1) Umbilical hernia Obstruction and gangrene presence: without obstruction or gangrene Qualified Code(s): K42.9 - Umbilical hernia without obstruction or gangrene (2) Diabetes Diabetes mellitus complication status: without complication Diabetes mellitus chcf insulin use: 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 transplanted heart: [place] heart Associated angina: without angina Qualified Code(s): I25.10 - Atherosclerotic heart disease of [place] coronary artery without angina pectoris
[2019-07-05] MEDS ORDERED: TRAZODONE HCL 100 MG TAB PO SCH (00:35)
[2019-07-05 06:58] LABS: Hematocrit (blood only) 34.1 % (42-52); Hemoglobin 11.5 g/dL (14.0-18.0); Mean Corpuscular Hgb Conc 33.7 g/dL (32-36); Mean Platelet Volume 11.2 fL (7.4-10.4); Platelet Count 162 K/uL (130-400); RDW Coefficient of Variation 13.6 % (11.5-14.5); RDW Standard Deviation 44.6 fL (36.4-46.3); Red Blood Count 3.79 M/uL (4.7-6.1); White Blood Count 7.94 K/uL (4.8-10.8)
--- NOTE | 2019-07-05 07:26 | Surgery Progress Note ---
Date of Service July 05, 2019 Assessment & Plan (1) Umbilical hernia: POD 1 repair of hernia advance diet ok for d/c from surgical standpoint Supervising Physician Co-Signing Physician Notes Patient seen and examined, agree with above. POD #1 incarcerated umbilical hernia repair, doing well, tolerating regular diet. Incision with Dermabond, no evidence of recurrence, no evidence of infection. Okay to discharge to home. Follow-up in 2 weeks in the general surgery clinic. Activity restrictions and wound care instructions reviewed. Return precautions given, call with questions or concerns. Subjective minimal pain, no nausea Physical Exam Gastrointestinal (Abdomen): Inspection/Auscultation: + abdominal surgical incision (clean, dry) Percussion/Palpation: abdomen soft Results & Data Vital Signs (Past 12 Hours) Vital Signs Temp Pulse Resp BP Pulse Ox 07/05/19 03:56 36.7 C 62 17 90/49 L 93 07/04/19 23:43 37.0 C 61 18 138/63 95 PG Care Time/CCT Total # of Minutes Spent Total Time Spent with Patient: Total time spent is greater than 50% in coordination of care (as documented) at patient's floor/unit and/or counseling patient: (1) Umbilical hernia Obstruction and gangrene presence: without obstruction or gangrene Qualified Code(s): K42.9 - Umbilical hernia without obstruction or gangrene
[2019-07-05 07:33] LABS: BUN Creatinine Ratio 16.2 (10-20); Calcium 8.7 mg/dl (8.5-10.1); Creatinine Clr Calc Pharmacy 48.4 ml/min; Est GFR (African American) 59.6; Est GFR (Non-African American) 51.4; Magnesium 1.8 mg/dl (1.8-2.4); Potassium 4.2 mmol/L (3.5-5.1)
[2019-07-05] MEDS ORDERED: LISINOPRIL 10 MG TAB PO SCH (09:00)
[2019-07-05] MEDS ORDERED: METOPROLOL SUCC 50MG EXT REL TAB PO SCH (09:00)
[2019-07-05] MEDS ORDERED: VENLAFAXINE HCL XR 75 MG CAPXR PO SCH (09:00)
[2019-07-05] MEDS: INSULIN ASPART 100 UNITS/ML 3 ML PEN SC SCH (09:11)
--- NOTE | 2019-07-05 10:40 | Discharge Summary ---
Date of Service date of admission - July 04, 2019 date of discharge - July 05, 2019 Admission HPI Per Admitting Provider 78 year old male who presented to the ED complaining of sudden onset of periumbilical abdominal pain. He reported that his abdomen felt hard and that it was painful to touch around his chronic umbilical hernia site. He had a normal bowel movement on 07/03/19. He has had an umbilical hernia for over 30 years and has felt these symptoms before, but they had resolved in a short period of time. The patient denies nausea, vomiting, diarrhea, F/C, cough, SOB, CP or dysuria. Principal Diagnosis incarcerated umbilical hernia s/p repair Discharge Exam Constitutional well developed, well nourished and + obese; no acute distress and no altered mental status ENMT external ear and nose normal, oropharynx normal Respiratory normal respiratory effort, lungs clear to auscultation Cardiovascular Rate/Rhythm: regular rate and regular rhythm Heart Sounds: normal S1 and normal S2; no murmur Vessels: posterior tibial pulses present and dorsalis pedis pulses present; no JVD Extremities: no edema Gastrointestinal (Abdomen) Inspection/Auscultation: normal bowel sounds Percussion/Palpation: abdomen soft; abdomen nontender and no hepatosplenomegaly Skin fish-mouthed incision around umbilicus clean/dry/intact/no discharge or erythema Psychiatric A+Ox3, euthymic affect Discharge Data Allergies Allergy/AdvReac Type Severity Reaction Status Date / Time No Known Allergies Allergy Verified 07/11/19 13:52 Consultations general surgery - Edwardo Oneal DO Procedures Performed Operation Date: 07/04/19 Open Umbilical Hernia Repair - Edwardo Oneal DO, FACS Ordered Studies CT abd pelvis showing incarcerated umbilcal hernia; prostamegaly with chronic bladder outlet obstruction Hospital Course (1) Umbilical hernia: Patient presented with incarcerated umbilical hernia and possibly early partial SBO 2nd to such. He was seen in consult by Dr Edwardo Oneal who performed an open umbilical hernia repair. Post-op he did well with passage of flatus, acceptable control of pain, and tolerated a diet. Incision was clean and intact at time of discharge. He was given post-d/c instructions from the general surgery team and will follow-up with them in the clinic for incision check within 10 days. (2) Diabetes: Resumed on his oral agents at time of discharge. (3) CAD (coronary artery disease): Stable; no ischemic symptoms while hospitalized. He will resume aspirin at discharge. Beta perla and statin will be continued as previous. (4) Hypercholesteremia: Continue statin agent. Total Time Total Time Spent Total Time Spent (In Minutes): 30 Total Time Includes: Examination of the Patient, Discharge Planning and Medication Reconciliation Discharge Plan Discharge Items Patient Disposition: Home - Self-Care Reason For Visit: abdominal pain Discharge Diagnosis: Incarcerated (loop of bowel stuck) umbilical hernia -- surgical repair by Dr Oneal Goals: 1. relieve abdominal pain 2. fix the umbilical hernia Activity: Resume your previous activity Lifting: No more than 10 pounds Bathing Comment: you may shower starting tomorrow Exercise/Sports: Wait until after follow-up appointment Non-emergency contact: Primary Care Provider and Surgeon Call non-emergency contact if: you have any medication questions, your symptoms worsen, your pain is not controlled, your pain is worsening, your temperature is above 101, your wound has increased redness, your wound has increased drainage and your wound pain has increased Follow-up/Referrals: Bradley Hill III, MD [Primary Care Provider] - 07/11/19 2:00 pm (see Dr Hill within 1 week) Edwardo Oneal DO, RADHA [Physician] - 07/17/19 10:00 am (Please, follow up at [facility] General Surgery Office with Dr. Oneal on WednesdayJuly 17 at 10:00 am. *The office is located at [address] [facility] in [place]. If you need to change this appointment, call the office at [phone].) Diet: Carb Consistent or DM2 and Heart Healthy Addtl Attending Provider Instructions: You presented with abdominal pain. This was due to your umbilical hernia. A loop of intestine was stuck in the hernia causing "incarceration." This is a surgical emergency. You were taken to the operating room by Dr Oneal who fixed the hernia. You have done well since the surgery. Recommendations - 1. follow all instructions as outlined by your surgeon. 2. for abdominal pain may take oxycodone/acetaminophen 1 tablet every 4 hours as needed. This is a narcotic pain killer. Do not drive while taking this medication. Do not drink alcohol while taking this medication. The narcotic contains tylenol so do NOT take extra [id number]-hytebba tylenol while on the pain killers. The pain killers will also cause constipation so please take [id number] miralax and/or senakot for your bowels. 3. no changes were made in any of your other chronic medications. 4. follow-up -- see separate section. 5. return to [facility] if -- * you have fever over 101 degrees * you have worsening abdominal pain, nausea or vomiting * you have any concerns of redness, drainage, or swelling from your incision near the belly button * any other concerns Addtl Home Health Speech Therapist Provider Instructions: Pending Studies at Discharge: No Stand-Alone Forms: Call Back Authorization, My [facility] Medications and DC Order Prescriptions: Continued meclizine 25 mg tablet 25 mg PO QAM Qty: 90 RF: 3 glimepiride [Amaryl] 4 mg tablet 4 mg PO BID Qty: 180 RF: 3 magnesium chloride 64 mg tablet,delayed release (DR/EC) 128 mg PO TID Qty: 540 RF: 3 venlafaxine [Effexor XR] 75 mg capsule,extended release 24hr 225 mg PO QAM Qty: 270 RF: 3 acarbose [Precose] 50 mg tablet 50 mg PO TID Qty: 270 RF: 2 loratadine [Claritin] 10 mg tablet 10 mg PO DAILY Qty: 90 RF: 3 Januvia 100 mg tablet 100 mg PO DAILY Qty: 90 RF: 3 calcium carbonate-vitamin D3 600 mg(1,500mg) -200 unit tablet 1 tab PO BID RF: 0 finasteride [Proscar] 5 mg tablet 5 mg PO HS Qty: 90 RF: 3 aspirin 81 mg Tablet,Delayed Release (Dr/Ec) 81 mg PO DAILY RF: 0 atorvastatin [Lipitor] 80 mg Tablet 80 mg PO HS RF: 0 metoprolol succinate [Toprol XL] 50 mg Tablet Extended Release 24 Hr 50 mg PO QAM RF: 0 tolterodine [Detrol] 2 mg Tablet 2 mg PO BID RF: 0 trazodone 100 mg Tablet 200 mg PO HS RF: 0 lisinopril [Zestril] 10 mg Tablet 10 mg PO QAM RF: 0 docusate sodium 100 mg Capsule 200 mg PO HS RF: 0 multivitamin Capsule 1 cap PO QDL RF: 0 fluticasone propionate [Flonase Allergy Relief] 50 mcg/actuation [place],Suspension 2 spray INTRANASAL QAM RF: 0 Trulicity 0.75 mg/0.5 mL pen injector 1.5 mg subcut WK RF: 0 Discontinued hydrocodone-acetaminophen [Vicodin] 5-300 mg tablet 1 tab PO Q6H PRN (Reason: pain) Qty: 20 RF: 0 sulindac 200 mg Tablet 200 mg PO BID RF: 0 No Action sulindac 200 mg tablet 200 mg PO BID RF: 0 diazepam [Valium] 5 mg tablet 5 mg PO BID PRN (Reason: tremors) Qty: 60 RF: 1 Discharge Orders: Discharge Order (Routine); Ordered 07/05/19 Ordered By: Abisai Loja/Other Patient Handouts: Surgery Prevent DVT After, Repair Umbilical Hernia After Ch Admission Data Admit Date/Time: 07/04/19 00:57 Attending Provider: Darwin Flynn Admit Provider: Patrick Mills Primary Care Provider: Bradley Hill III Other Providers: Edwardo Oneal Other Interventions: Discharge Summary Assessment (RN) Last Done: 07/05/19 12:13 DC Date/Time DO NOT enter until pt leaves facility: 07/05/19 12:53
--- NOTE | 2019-07-05 12:33 | Anesthesiology Progress Note ---
Date of Service July 05, 2019 Anesthesia Post Procedure Vital Signs Vital Signs: Temp Pulse Pulse Pulse Resp BP BP 07/05/19 12:13 36.6 C 56 L 62 20 130/58 L 07/05/19 07:53 36.6 C 56 L 20 130/58 L 07/05/19 03:56 36.7 C 62 17 90/49 L 07/04/19 23:43 37.0 C 61 18 138/63 07/04/19 18:10 36.5 C 62 16 146/68 H 07/04/19 16:40 36.6 C 61 18 135/63 07/04/19 15:46 36.4 C L 62 18 160/74 H 07/04/19 15:12 36.8 C 59 L 16 160/73 H 07/04/19 14:45 37.0 C 62 14 150/63 H 07/04/19 14:35 37.0 C 07/04/19 14:31 60 14 07/04/19 14:30 60 13 140/82 07/04/19 14:26 60 15 07/04/19 14:25 61 13 143/72 H 07/04/19 14:21 60 16 07/04/19 14:20 62 12 153/66 H 07/04/19 14:16 59 L 14 07/04/19 14:15 58 L 11 L 138/86 07/04/19 14:10 59 L 9 L 148/64 H 07/04/19 14:06 59 L 14 153/68 H 07/04/19 14:05 61 20 07/04/19 14:02 67 15 157/72 H 07/04/19 14:00 71 13 07/04/19 13:59 74 15 07/04/19 13:58 36.3 C L 79 74 13 172/77 H 177/77 H Pulse Ox 07/05/19 12:13 93 07/05/19 07:53 93 07/05/19 03:56 93 07/04/19 23:43 95 07/04/19 18:10 92 07/04/19 16:40 92 07/04/19 15:46 91 07/04/19 15:12 93 07/04/19 14:45 93 07/04/19 14:35 93 07/04/19 14:31 93 07/04/19 14:30 92 07/04/19 14:26 92 07/04/19 14:25 94 07/04/19 14:21 95 07/04/19 14:20 94 07/04/19 14:16 100 07/04/19 14:15 100 07/04/19 14:10 100 07/04/19 14:06 100 07/04/19 14:05 98 07/04/19 14:02 92 07/04/19 14:00 96 07/04/19 13:59 99 07/04/19 13:58 94 Notes Mental Status: alert / awake / arousable and participated in evaluation Nausea / Vomiting: adequately controlled Pain: adequately controlled Airway Patency, RR, SpO2: stable & adequate BP & HR: stable & adequate Hydration State: stable & adequate
[2019-07-05] MEDS ORDERED: ATORVASTATIN 40 MG TAB PO SCH (21:00)
[2019-07-05] MEDS ORDERED: FINASTERIDE 5 MG TAB PO SCH (21:00)
== END 2019-07-05 12:53 | disposition home or self-care (01) ==
LOC: 3W 21:51 → ED 21:51 → SUATTDRO 07-04 00:57 → 3W 07-04 01:16
DX: N18.9 Chronic kidney disease, unspecified; K42.0 Umbilical hernia with obstruction, without gangrene; I12.9 Hypertensive chronic kidney disease with stage 1 through stage 4 chronic kidney disease, or unspecified chronic kidney disease; E11.9 Type 2 diabetes mellitus without complications; N40.0 Benign prostatic hyperplasia without lower urinary tract symptoms; I25.2 Old myocardial infarction; Z95.1 Presence of aortocoronary bypass graft; Z79.82 Long term (current) use of aspirin; F32.9 Major depressive disorder, single episode, unspecified; E78.5 Hyperlipidemia, unspecified; E78.00 Pure hypercholesterolemia, unspecified; I25.10 Atherosclerotic heart disease of native coronary artery without angina pectoris; M19.90 Unspecified osteoarthritis, unspecified site; I25.5 Ischemic cardiomyopathy; Z79.899 Other long term (current) drug therapy